=== PATIENT | male | born 1965 | race Caucasian/White ===

== ENCOUNTER 2017-04-23 10:00 | Emergency (ER) | payer MEDICAID, SELFPAY ==
[2017-04-23 10:01] VITALS: BP 136/7; PULSE 99; RESP 16; TEMP 36.2; O2SAT 98; BMI 25.5
--- NOTE | 2017-04-23 10:22 | RAD_ITS ---
STUDY: X-RAY - LUMBAR SPINE REASON FOR EXAM: Male, 51 years old. Low back pain following a fall. TECHNIQUE: 3 view(s) of the lumbar spine were obtained. COMPARISON: None FINDINGS: There is straightening of the normal lumbar lordosis. There is no substantial scoliosis. There is a normal alignment of the vertebrae. Mild degree of anterior spondylosis at multiple levels. Disc space narrowing at the L4-L5 and L5-S1 levels. The soft tissue structures are unremarkable. RAD/Lumbar Spine 2 or 3 Views IMPRESSION: Degenerative changes of the spine, as detailed above. Straightening of the normal lumbar lordosis. Electronically Signed: Nikhil Tony MD at 11:25 EST Tel [phone], Service support ,
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
[2017-04-23 12:11] VITALS: PULSE 88; RESP 14; O2SAT 97
== END 2017-04-23 12:11 | disposition home or self-care (01) ==
PROVIDERS: Emergency Provider Emergency Medicine
DX: S06.0X0A Concussion without loss of consciousness, initial encounter (principal); S39.012A Strain of muscle, fascia and tendon of lower back, initial encounter; S30.0XXA Contusion of lower back and pelvis, initial encounter; W00.9XXA Unspecified fall due to ice and snow, initial encounter; Y93.9 Activity, unspecified; Y92.008 Other place in unspecified non-institutional (private) residence as the place of occurrence of the external cause; K13.70 Unspecified lesions of oral mucosa; N18.6 End stage renal disease; F10.94 Alcohol use, unspecified with alcohol-induced mood disorder; Y90.9 Presence of alcohol in blood, level not specified; F19.94 Other psychoactive substance use, unspecified with psychoactive substance-induced mood disorder; Z72.0 Tobacco use
CPT/HCPCS: 72100; 99282

== ENCOUNTER 2017-04-28 13:59 | Emergency (ER) | payer MEDICAID, SELFPAY ==
[2017-04-28 14:00] VITALS: BP 150/96; PULSE 113; RESP 18; TEMP 37.7; O2SAT 98; BMI 24.9
--- NOTE | 2017-04-28 15:50 | RAD_ITS ---
STUDY: X-RAY CHEST REASON FOR EXAM: Male, 51 years old. Fever. TECHNIQUE: AP and lateral upright views of the chest. COMPARISON: Portable AP upright chest x-ray February 24, 2017. FINDINGS: The lungs are not as fully expanded today, and there is subsegmental crowding/atelectasis in the medial right lung base. No other new infiltrate. There is no demonstrated pleural abnormality. Normal size heart. Normal mediastinum and sosa. Normal visualized pulmonary arteries. There is stable mild atherosclerotic calcification of the aortic arch. Normal visualized thoracic spine. Normal visualized ribs, clavicles, and shoulders. There is no demonstrated abnormality of the visualized soft tissue structures of the upper abdomen. RAD/Chest PA and Lateral IMPRESSION: Suboptimal inspiratory effort with subsegmental volume loss in the medial right base. Electronically Signed: Manny De Jesus MD at 16:07 EST , Service support ,
[2017-04-28 15:54] LABS: Absolute Lymphocyte Count 1.14 X10^3/ul (0.83-4.51); Absolute Neutrophil Count 5.3 X10^3/uL (2.0-7.7); Basophil# 0.01 X10^3/uL; Basophil% 0.1 % (0-1); Eosinophils% 1.4 % (0-5); Hematocrit 37.9 % (40-54); Lymphocyte # 1.14 X10^3/ul (4.0); Lymphocyte % 16.3 % (19-41); Mean Corp Hgb Conc 34.3 g/gl (32-36); Mean Corpuscular Hgb 31.2 pg (27.0-32.0); Mean Corpuscular Volume 90.9 fL (80-94); Mean Platelet Vol. 10.3 fl (6.2-12.0); Monocyte# 0.48 X10^3/uL; Monocyte% 6.8 % (0-10); Neutrophil # 5.27 X10^3/uL (2.7-7.7); Neutrophil % 75.3 % (47-70); Platelet Count 139 K/mm3 (150-450); RBC Distribution Width CV 14.2 % (11.6-14.6); RBC Distribution Width SD 46.2 fl (35.1-43.9); Red Blood Count 4.17 M/mm3 (4.6-6.2)
[2017-04-28 15:58] LABS: POSITIVE COUNT NO; POSITIVE DIFFERENTIAL NO; POSITIVE MORPHOLOGY NO
--- NOTE | 2017-04-28 16:01 | ED.DCSUM_ITS ---
- ER Visit Summary Date of Service: 04/28/17 Chief Complaint: UTI History of Present Illness: The patient is a 51 M who was admitted in February for sepsis and UTI. Patient presents back today stating he thinks his infection has returned. He does have some dysuria symptoms today. He states he had chills that started last evening. Patient also has chronic back pain and is complaining of back pain. He was seen in the ER 5 days ago for increased back pain after a fall. Lumbar spine x-rays were unremarkable. Physical Examination: No signs triage include a temperature of 100.0 TA and a heart rate of 113. At the time of my exam his oral temperature is 98.6. Patient is sleeping comfortably but easily awakens. Head neck examination is unremarkable. Heart is tachycardic and regular. Lung sounds are clear. Abdomen is soft nontender. Active bowel sounds noted throughout. Back examination is obtained after the patient easily turned onto his side. He has mild tenderness in the lower thoracic and upper lumbar region. Neuro exam is normal. Test Results: CBC is significant only for platelet count of 139,000. Chemistry studies normal. Urinalysis and lactate are normal. I did review his x-ray from a few days ago that was unremarkable. Urine tox screen is positive for amphetamines, benzos, and cannabinoids. Emergency Department Course and Treatment: Due to the patient's complaint of back pain, fever, and known drug use, I did have concern for possible epidural abscess. MRI was ordered. Patient went down to MRI, but reportedly crawled out of the machine stating that he could not tolerate the test that he does wanted to leave. He was brought back to the emergency room. AMA paperwork was being prepared with the patient left the department. Treatment Plan: [] Disposition: Eloped Impression: Back pain, acute on chronic This note was generated with [employer] dictation software. It may contain incorrect words, spelling, and punctuation that were not noted in review of the chart prior to signing ED Disposition - Plan for ED Patient: Disposition: Against Medical Advice Chief Complaint: Back Instructions: ED Neck Back Pain General Referrals: Antonieta Sim [NON-STAFF] -
[2017-04-28 16:07] LABS: Anion Gap 4 (5-15); BUN 16 mg/dL (7-18); BUN/Creat Ratio 15.5 RATIO (10-20); Calcium,Total 8.3 mg/dL (8.5-10.1); Chloride 102 mmol/L (98-107); Creatinine, Serum 1.03 mg/dL (0.70-1.30); EST Glomerular Filtration Rate 80 mL/min (>60); Est Glom Filt Rate - Afr Amer 97 mL/min (>60); Estimated Creatinine Clearance 88.34 ml/min; Glucose 88 mg/dL (74-106); Potassium 3.8 mmol/L (3.5-5.1); Sodium Level 135 mmol/L (136-145)
[2017-04-28 16:10] LABS: Bacteria 0 SEEN /hpf (None Seen); Mucous, Urine 0 SEEN /hpf (<or=2+); Red Blood Cells-Urine 0 SEEN /hpf (0-5); Squamous Epithelial Cells - UA 0 SEEN /hpf (0-5); White Blood Cells 0 SEEN /hpf (0-5)
[2017-04-28] MEDS: 0.9% Normal Saline 1,000 ML 150 ML IV (16:14)
[2017-04-28 16:26] LABS: Lactic Acid 1.5 mmol/L (0.4-2.0)
[2017-04-28 16:29] LABS: Color, Urine Yellow (Yellow); Glucose, Dipstick Normal (Normal); Ketone-Dipstick Negative (Negative); Leukocyte Esterase-Dipstick Negative /ul (Negative); Nitrite-Dipstick Negative (Negative); Occult Blood-Urine Negative /ul (Negative); Protein-Dipstick Negative (Negative); Urine Bilirubin Dipstick Negative (Negative); Urine Clarity Clear (Clear); Urine Urobilinogen Normal (Normal)
[2017-04-28 16:54] LABS: Amphetamine Urine VISTA POSITIVE (<1000 ng/mL); Barbiturate Urine VISTA NEGATIVE (< 200 ng/mL); Benzodiazepine Urine VISTA POSITIVE (< 200 ng/mL); Cocaine Urine VISTA NEGATIVE (< 300 ng/mL); Ecstacy Urine VISTA NEGATIVE (< 500 ng/mL); Methadone Urine VISTA NEGATIVE (< 300 ng/mL); PCP Urine VISTA NEGATIVE (< 25 ng/mL); THC Urine VISTA POSITIVE (< 50 ng/mL); Vista UDS pH Range 6
[2017-04-28 18:08] VITALS: PULSE 94; RESP 16; O2SAT 97
--- NOTE | 2017-04-28 19:20 | ED.DEP ---
ED Disposition - Plan for ED Patient: Disposition: Home or Assisted Living Chief Complaint: Back Instructions: ED Neck Back Pain General Referrals: Antonieta Sim [NON-STAFF] -
--- NOTE | 2017-04-28 19:24 | ED.RN ---
PT DID NOT COMPLETE MRI ORDERED. RADIOLOGY CALLED AND STATED THAT PT CLIMBED OUT OF MRI MACHINE AND REFUSED TO FINISH SCAN. PT RETURNED TO ED AND ASKED THAT HE BE RELEASED IMMEDIATELY. IV WAS DISCONTINUED AND DISCHARGE GIVEN. PT LEAVES ED AGITATED.
== END 2017-04-28 19:27 | disposition left against medical advice (07) ==
PROVIDERS: Emergency Provider Emergency Medicine
DX: M45.6 Ankylosing spondylitis lumbar region (principal); M54.5 Low back pain; G89.29 Other chronic pain; F12.90 Cannabis use, unspecified, uncomplicated; F15.90 Other stimulant use, unspecified, uncomplicated; F19.90 Other psychoactive substance use, unspecified, uncomplicated; Z72.0 Tobacco use
CPT/HCPCS: 36415; 71046; 80048; 80307; 81001; 83605; 85025; 87040; 96360; 96361; 99283; J7030; A4216

== ENCOUNTER 2017-06-06 02:49 | Emergency (ER) | payer MEDICAID, SELFPAY ==
[2017-06-06 02:50] VITALS: BP 175/100; PULSE 120; RESP 16; TEMP 37.3; O2SAT 97; BMI 25.8
--- NOTE | 2017-06-06 03:18 | EKG12_ITS ---
Test Reason : GEN ILL Blood Pressure : / mmHG Vent. Rate : 116 BPM Atrial Rate : 116 BPM P-R Int : 144 ms QRS Dur : 086 ms QT Int : 306 ms P-R-T Axes : 041 045 056 degrees QTc Int : 425 ms Sinus tachycardia Otherwise normal ECG Confirmed by MILES ALVAREZ, ANNEMARIE ([id number]), newspaper photo editor MEGAN PASTOR ([id number]) on 06/09/2017 1:26:08 PM Referred By: RETA Confirmed By:ANNEMARIE AQUINO MD
--- NOTE | 2017-06-06 03:18 | RAD_ITS ---
STUDY: X-RAY CHEST REASON FOR EXAM: Male, 51 years old. Cough. TECHNIQUE: Frontal and lateral views of the chest. COMPARISON: 02/24/2017. 04/01/2015. FINDINGS: There is hyperinflation of the lungs consistent with chronic obstructive lung disease (COPD). There is no demonstrated pulmonary infiltrate. There is no demonstrated pleural abnormality. Normal size heart. Normal mediastinum and sosa. Normal visualized pulmonary arteries. Normal visualized aortic arch and descending thoracic aorta. Normal visualized thoracic spine. Normal visualized ribs, clavicles, and shoulders. There is no demonstrated abnormality of the visualized soft tissue structures of the upper abdomen. RAD/Chest PA and Lateral IMPRESSION: Hyperexpansion of lungs, suggesting COPD. No evidence for acute cardiopulmonary pathology. Electronically Signed: Luis Vilchis MD at 4:43 EDT , Service support ,
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
[2017-06-06 03:26] LABS: Bacteria 0 SEEN /hpf (None Seen); Color, Urine Yellow (Yellow); Glucose, Dipstick Normal (Normal); Ketone-Dipstick Negative (Negative); Leukocyte Esterase-Dipstick Negative /ul (Negative); Mucous, Urine 0 SEEN /hpf (<or=2+); Nitrite-Dipstick Negative (Negative); Occult Blood-Urine 150 /ul (Negative); Protein-Dipstick 100 mg/dl (Negative); Red Blood Cells-Urine 0 SEEN /hpf (0-5); Squamous Epithelial Cells - UA 0 SEEN /hpf (0-5); Urine Bilirubin Dipstick Negative (Negative); Urine Clarity Clear (Clear); Urine Urobilinogen Normal (Normal); Urine pH 6.5 (5.0 - 8.0); White Blood Cells 0 SEEN /hpf (0-5)
[2017-06-06 03:41] LABS: Absolute Lymphocyte Count 0.61 X10^3/ul (0.83-4.51); Absolute Neutrophil Count 7.3 X10^3/uL (2.0-7.7); Basophil# 0.02 X10^3/uL; Basophil% 0.2 % (0-1); Eosinophil# 0.02 X10^3/uL; Eosinophils% 0.2 % (0-5); Hematocrit 45.1 % (40-54); Hemoglobin 15.7 g/dl (13.0-16.5); Lymphocyte # 0.61 X10^3/ul (4.0); Mean Corp Hgb Conc 34.8 g/gl (32-36); Mean Corpuscular Hgb 31.2 pg (27.0-32.0); Mean Corpuscular Volume 89.5 fL (80-94); Mean Platelet Vol. 10.4 fl (6.2-12.0); Monocyte# 0.76 X10^3/uL; Monocyte% 8.7 % (0-10); Neutrophil # 7.28 X10^3/uL (2.7-7.7); Neutrophil % 83.7 % (47-70); POSITIVE COUNT NO; POSITIVE DIFFERENTIAL NO; POSITIVE MORPHOLOGY NO; Platelet Count 143 K/mm3 (150-450); RBC Distribution Width CV 13.5 % (11.6-14.6); Red Blood Count 5.04 M/mm3 (4.6-6.2); White Blood Count 8.7 K/mm3 (4.4-11.0)
[2017-06-06] MEDS: 0.9% Normal Saline 1,000 ML 1000 ML IV (03:50)
[2017-06-06] MEDS: Acetaminophen 500 MG Tablet 1000 MG PO (03:51)
[2017-06-06] MEDS: Ondansetron 4 MG/2 ML Vial IV (03:51)
[2017-06-06 03:59] LABS: ALB/GLOB Ratio 0.5 RATIO (0.9-2.4); AST(SGOT) 38 U/L (15-37); Alanine Aminotransfer ALT/SGPT 48 U/L (16-61); Albumin, Serum 3.1 g/dL (3.2-5.0); Alkaline Phosphatase 79 U/L (45-117); Anion Gap 7 (5-15); BUN 10 mg/dL (7-18); BUN/Creat Ratio 9.8 RATIO (10-20); Chloride 99 mmol/L (98-107); Creatinine, Serum 1.02 mg/dL (0.70-1.30); EST Glomerular Filtration Rate 81 mL/min (>60); Est Glom Filt Rate - Afr Amer 98 mL/min (>60); Estimated Creatinine Clearance 83.75 ml/min; Globulin 5.9 g/dL (2.2-4.2); Glucose 110 mg/dL (74-106); Potassium 3.5 mmol/L (3.5-5.1); Sodium Level 135 mmol/L (136-145)
[2017-06-06 04:02] LABS: Lactic Acid 0.9 mmol/L (0.4-2.0)
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
[2017-06-06 06:49] VITALS: BP 112/73; PULSE 92; RESP 24; TEMP 37.2; O2SAT 98
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
[2017-06-06 07:16] VITALS: RESP 18
--- NOTE | 2017-06-06 07:18 | ED.DEP ---
ED Disposition - Plan for ED Patient: Chief Complaint: Cold Sx Instructions: ED Sinusitis Abx Tx, ED Fx Nasal Conf W X Ray, ED Dysuria Uncertain Cause Prescriptions: Levofloxacin [Levaquin] 750 mg PO DAILY #7 tab Referrals: Vishnu Song MD [Primary Care Provider] - Isiah Bruno MD [STAFF PHYSICIAN] -
[2017-06-06 08:01] VITALS: BP 148/74; PULSE 98; RESP 16; TEMP 36.6; O2SAT 98
--- NOTE | 2017-06-06 18:23 | ED.RN ---
did follow up call related to prelim blood culture result per request of dr Quick. Called to verify pt sx and if has fever. Pt did not answer. left message at [phone].
== END 2017-06-06 08:02 | disposition home or self-care (01) ==
PROVIDERS: Emergency Provider Emergency Medicine; Family Provider Family Medicine; PCP Family Medicine
DX: S02.2XXA Fracture of nasal bones, initial encounter for closed fracture (principal); Y04.2XXA Assault by strike against or bumped into by another person, initial encounter; Y93.89 Activity, other specified; Y92.9 Unspecified place or not applicable; J01.00 Acute maxillary sinusitis, unspecified; R30.0 Dysuria; B19.20 Unspecified viral hepatitis C without hepatic coma; Z72.0 Tobacco use
CPT/HCPCS: 70160; 70450; 70486; 71046; 80053; 81001; 83605; 85025; 87040; 87086; 87186; 87804; 93005; 96361; 96374; 99285; J7030; A4216; J2405

== ENCOUNTER 2017-06-10 11:36 | Emergency (ER) | payer MEDICAID, SELFPAY ==
[2017-06-10 11:37] VITALS: BP 163/100; PULSE 108; RESP 18; TEMP 36.2; O2SAT 99; BMI 24.3
--- NOTE | 2017-06-10 11:55 | RAD_ITS ---
STUDY: X-RAY - RIGHT HAND REASON FOR EXAM: Male, 51 years old. Pain following a recent fall. TECHNIQUE: 3 view(s) of the hand. COMPARISON: None. FINDINGS: Normal radiocarpal articulation. Normal distal radioulnar joint. Normal visualized carpal bones. Normal carpal articulations Normal carpometacarpal articulation of the thumb. Normal second through fifth carpometacarpal joints. Normal metacarpi. Normal metacarpophalangeal joint of the thumb. Normal interphalangeal joint of the thumb. Normal proximal and distal phalanges of the thumb. Normal metacarpophalangeal joints of the second through fifth fingers. Normal proximal and distal interphalangeal joints of the second through fifth fingers. There is evidence of prior amputation of the distal portions of the distal phalanges of the third and fourth digits. Soft tissue swelling. RAD/Hand Min 3 Views IMPRESSION: No acute abnormality is seen. 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 Electronically Signed: Nikhil Tony MD at 12:19 EDT Tel [phone], Service support ,
--- NOTE | 2017-06-10 12:27 | ED.VISSUMM ---
- ER Visit Summary Date of Service: 06/10/17 Chief Complaint: Right hand injury History of Present Illness: The patient is a 51 M who states that he fell on snow covered steps yesterday injuring his right hand when he put out to catch himself. He is right-hand dominant. He denies any other injury. Physical Examination: Vital signs are significant for blood pressure 163/100, otherwise unremarkable. Patient sitting upright in bed no acute distress. Head neck examination was no external sign of trauma. Heart is regular rate and rhythm. No lung sounds are clear. Right upper extremity examination reveals tenderness palpation of the MCP joint of the right index finger. There is mild edema and erythema. There is no deformity. He is able to wiggle fingers. Test Results: Right hand x-rays reveal no acute abnormality. He had prior amputations of the distal aspect of the distal phalanges of the third and fourth digits. Emergency Department Course and Treatment: Amor wrap was applied to the hand. He is given a prescription for naproxen. Treatment Plan: [] Disposition: Discharge Impression: Right hand contusion This note was generated with [employer] dictation software. It may contain incorrect words, spelling, and punctuation that were not noted in review of the chart prior to signing ED Disposition - Plan for ED Patient: Disposition: Home or Assisted Living Chief Complaint: Upper Extremity Injury Instructions: ED Contusion Hand Prescriptions: Naproxen [Naprosyn] 500 mg PO BID PRN #20 tablet Referrals: Vishnu Song MD [Primary Care Provider] - 1 Week if not improving
[2017-06-10 12:33] VITALS: RESP 12
== END 2017-06-10 12:33 | disposition home or self-care (01) ==
PROVIDERS: Emergency Provider Emergency Medicine; Family Provider Family Medicine; PCP Family Medicine
DX: S60.221A Contusion of right hand, initial encounter (principal); W00.1XXA Fall from stairs and steps due to ice and snow, initial encounter; Y93.9 Activity, unspecified; Y92.9 Unspecified place or not applicable; Z72.0 Tobacco use
CPT/HCPCS: 73130; 99282

== ENCOUNTER 2018-06-27 11:44 | Emergency (ER) | payer MEDICAID, SELFPAY ==
[2018-06-27 11:45] VITALS: BP 162/89; PULSE 102; RESP 16; TEMP 36.5; O2SAT 97; BMI 25.1
--- NOTE | 2018-06-27 11:54 | ED.VISSUMM ---
- ER Visit Summary Date of Service: 06/27/18 Chief Complaint: Right hand pain and redness History of Present Illness: The patient is a 52 M who has pain and redness on his right hand. It started yesterday. He denies any trauma. He believes he may have a spider bite. He noticed some swelling on the ulnar side of his hand. He noted to be a little bit red. He has not had a fever. Denies any pain in his fingers. Pain is not worse with moving his fingers. Physical Examination: Vital signs are reviewed. Patient afebrile. Right hand exam shows no tenderness to palpation. He has mild swelling on the ulnar portion of his hand. There is some erythema. There is no abscess. He has full range of motion without pain. Test Results: None performed Emergency Department Course and Treatment: Patient appears to have a cellulitis of his hand. He will be treated with Keflex. He will ice and elevate and will follow up with his PCP. NSAIDs for pain as needed Treatment Plan: [] Disposition: Discharge Impression: Right hand cellulitis This note was generated with [employer] dictation software. It may contain incorrect words, spelling, and punctuation that were not noted in review of the chart prior to signing ED Disposition - Plan for ED Patient: Referrals: Vishnu Song MD [Primary Care Provider] -
--- NOTE | 2018-06-27 11:56 | ED.DEP ---
ED Disposition - Plan for ED Patient: Disposition: Home or Assisted Living Instructions: ED Infec Skin Cellulitis Prescriptions: Cephalexin [Keflex] 500 mg PO Q6 #28 cap Referrals: Vishnu Song MD [Primary Care Provider] -
[2018-06-27] MEDS: Cephalexin 250 MG Capsule 500 MG PO (12:06)
[2018-06-27 12:16] VITALS: BP 138/72; PULSE 85; RESP 16; O2SAT 98
== END 2018-06-27 12:28 | disposition home or self-care (01) ==
PROVIDERS: Emergency Provider Emergency Medicine; Family Provider Family Medicine; PCP Family Medicine
DX: L03.113 Cellulitis of right upper limb (principal); Z72.0 Tobacco use
CPT/HCPCS: 99283

== ENCOUNTER → 2018-10-09 15:05 | Outpatient (CLI) | payer SELFPAY ==
[2018-10-09 15:42] LABS: Cholesterol 108 mg/dL (200); High Density Lipoprotein 28 mg/dL; Triglycerides 125 mg/dL; Very Low Density Lipoprotein 25 mg/dL (5-40)
[2018-10-09 17:37] LABS: AST(SGOT) 97 U/L (15-37); Alanine Aminotransfer ALT/SGPT 100 U/L (16-61); Albumin, Serum 3.2 g/dL (3.2-5.0); Alkaline Phosphatase 93 U/L (45-117); Bilirubin, Direct 0.24 mg/dL (0.00-0.30); Globulin 4.8 g/dL (2.2-4.2)
== END ==
LOC: LABSPEC 15:12
PROVIDERS: Family Provider Family Medicine; PCP Family Medicine
DX: F11.23 Opioid dependence with withdrawal (principal)
CPT/HCPCS: 80061; 80076

== ENCOUNTER 2018-10-21 19:01 | Emergency (ER) | payer SELFPAY ==
[2018-10-21 19:02] VITALS: BP 161/86; PULSE 106; RESP 14; TEMP 36.9; O2SAT 98; BMI 24.3
--- NOTE | 2018-10-21 19:09 | US_ITS ---
STUDY: SCROTUM ULTRASOUND REASON FOR EXAM: Male, 53 years old. Right swelling and pain. TECHNIQUE: Ultrasound evaluation of the scrotum was performed with color Doppler and static bolden-scale imaging. COMPARISON: None. FINDINGS: RIGHT TESTICLE INTRATESTICULAR: There is a normal size of the right testicle. The right testicle measures 5 x 2.4 x 3.3 cm. There is a homogenous echotexture. There is normal arterial and normal venous vascularity. There is no demonstrated right testicular mass or cyst. EXTRATESTICULAR: The epididymis is normal in size. The epididymis head measures 1.3 x 1 x 0.8 cm. There is normal vascularity of the epididymis. 3 mm epididymal cyst. There is a small hydrocele. There is no demonstrated varicocele. There is no demonstrated extratesticular mass or cyst. LEFT TESTICLE INTRATESTICULAR: There is a normal size of the left testicle. The left testicle measures 5.1 x 2.3 x 3 cm. There is a homogenous echotexture. There is normal arterial and normal venous vascularity. There is no demonstrated left testicular mass or cyst. EXTRATESTICULAR: The epididymis is normal in size. The epididymis head measures 1.2 x 1 x 1.2 cm. There is normal vascularity of the epididymis. There is no demonstrated epididymal cystic structure. There is a small complex hydrocele. There is no demonstrated varicocele. There is no demonstrated extratesticular mass or cyst. US/Testicular with Arterial Flow IMPRESSION: 1. Normal bilateral testicles. 2. Small complex left hydrocele may indicate hemorrhage or infection. 3. Mild right hydrocele. 4. Small right epididymal cyst. Electronically Signed: Venecia Barker MD at 20:23 EDT Tel , Service support ,
--- NOTE | 2018-10-21 21:19 | ED.DCSUM_ITS ---
History of Present Illness Chief Complaint: Male Pain/Injury Detail of Chief Complaint: right testicular pain Informant: Patient Onset: Days - 2 Context: Gradual Onset Timing: Continuous Quality: sore Location: right hemiscrotum Current Severity: Moderate Maximum Severity: Moderate Worsened by: going up inside me, palpation Narrative: Patient complains of testicular pain right side only and he has felt a nontender nodule in his scrotum as well. Darker, orange-colored urine that is not painful. No fevers. Itchy rash on his abdomen as well. No hematuria. No back pain or nausea/vomiting. States he is sexually active with a female but does not know who all she has been with. Denies urethral discharge when he is not urinating. - Past Medical History (1) Anxiety Status: Chronic (2) Depression Status: Chronic Past Medical History - Allergies and Home Meds Allergies/Adverse Reactions: Allergies hydroxyzine [From Vistaril] Allergy (Verified 10/21/18 19:05) Other Primary Care Physician: Vishnu Song MD [Primary Care Provider] - Surgical History: no surgical history Lives: Alone Smoking Status: Current every day smoker Drugs: None - Family History Maternal Family History: Reports: Hypertension Paternal Family History: Reports: Dementia Review of Systems General: Denies: Chills, Fever, Sweats Gastrointestinal: Denies: Abdominal pain, Nausea, Vomiting Genitourinary: Reports: - - Right testicular pain. Denies: Dysuria, Hematuria, Frequency Musculoskeletal: Denies: Neck pain, Back pain Skin: Reports: Rash. Denies: Abscess Physical Exam Vital Signs/Narrative: Vital Signs Temp Pulse Resp BP Pulse Ox 10/21/18 19:02 98.5 F 106 H 14 161/86 H 98 Inital Vital Signs reviewed: Yes General: Well nourished, Well developed, No Acute Distress Head: Normocephalic, Atraumatic Abdomen: Soft, Nontender, Nondistended, Normal bowel sounds : - - Posterior right testicular tenderness. No significant testicular tenderness. Mildly larger than the left. Small mobile nontender cystic structure palpable near the midline of the scrotum. No left hemiscrotal tenderness. Examined while standing, no hernia. No urethral discharge present. Back: Nontender, Normal Inspection. Negative for: CVA tenderness Skin: No Trauma, Rash - Scattered erythematous nontender blanching pruritic rash mons and lower abdominal wall. No penile shaft lesions or scrotal lesions. Neurological: Alert, Oriented x3, Cranial nerves II-XII grossly intact, Normal Strength, Normal Sensation, Normal Gait Psychological: Normal affect, Normal Mood Diagnostic/Tx/Re-eval Impressions Testicular Ultrasound 10/21/18 19:09 IMPRESSION: 1. Normal bilateral testicles. 2. Small complex left hydrocele may indicate hemorrhage or infection. 3. Mild right hydrocele. 4. Small right epididymal cyst. Electronically Signed: Venecia Barker MD at 20:23 EDT Tel , Service support , 10/21/18 19:09 US Testicular [Testicular with Arterial Flow] [US] Stat Laboratory Results 10/21/18 21:21 Urine Color Yellow Urine Clarity Clear Urine pH 5.0 Ur Specific [place] 1.025 Urine Protein 100 H Urine Glucose (UA) Normal Urine Ketones 5 H Urine Occult Blood 10 H Urine Nitrite Negative Urine Bilirubin 1 H Urine Urobilinogen 4 H Ur Leukocyte Esterase Negative Urine RBC 0-5 SEEN Urine WBC 0 SEEN Ur Squamous Epith Cells 0 SEEN Urine Bacteria 0 SEEN Urine Mucus 1+ - Medical Decision Making Ultrasound shows hydrocele which is palpable, but no obvious sign of the source of his pain. Clinically I think he has epididymitis. Additionally, he sounds like he may be at risk for GC and chlamydia. He was treated empirically here with IM Rocephin, and given a prescription for doxycycline. Urinalysis showed nothing acute. Pt left prior to discharge. ED Disposition - Plan for ED Patient: Disposition: Home or Assisted Living Diagnosis: Epididymitis, right, Hydrocele Instructions: Epididymitis Prescriptions: Doxycycline Hyclate 1 cap PO BID #14 cap Prescription Printed Referrals: Vishnu Song MD [Primary Care Provider] - Antwon Grove MD [STAFF PHYSICIAN] - 3-5 Days if not improving
[2018-10-21 21:25] LABS: Bacteria 0 SEEN /hpf (None Seen); Squamous Epithelial Cells - UA 0 SEEN /hpf (0-5); White Blood Cells 0 SEEN /hpf (0-5)
[2018-10-21 21:30] LABS: Color, Urine Yellow (Yellow); Glucose, Dipstick Normal (Normal); Ketone-Dipstick 5 mg/dl (Negative); Leukocyte Esterase-Dipstick Negative /ul (Negative); Nitrite-Dipstick Negative (Negative); Occult Blood-Urine 10 /ul (Negative); Protein-Dipstick 100 mg/dl (Negative); Specific Gravity, Urine 1.025 (1.002-1.030); Urine Clarity Clear (Clear); Urine Urobilinogen 4 mg/dl (Normal)
[2018-10-21 21:38] LABS: Mucous, Urine 1+ /hpf (<or=2+); Red Blood Cells-Urine 0-5 SEEN /hpf (0-5); Urine Bilirubin Dipstick 1 mg/dL (Negative)
[2018-10-21] MEDS: Ketorolac 60 MG/2 ML Vial IM (22:10)
[2018-10-21] MEDS: Ceftriaxone 500 MG Vial 250 MG IM (22:11)
[2018-10-21 22:35] VITALS: BP 134/72; PULSE 90; RESP 16; O2SAT 99
== END 2018-10-21 23:59 | disposition home or self-care (01) ==
PROVIDERS: Emergency Provider Emergency Medicine; Family Provider Family Medicine; PCP Family Medicine
DX: N45.1 Epididymitis (principal); N43.3 Hydrocele, unspecified; F17.200 Nicotine dependence, unspecified, uncomplicated
CPT/HCPCS: 76870; 81001; 87491; 87591; 93976; 96372; 99283

== ENCOUNTER 2018-11-27 00:46 | Observation (INO) | payer MEDICAID, SELFPAY ==
[2018-11-27] VITALS (11 sets, daily range): BP systolic 108–146; BP diastolic 68–99; PULSE 72–88; RESP 16–21; TEMP 36.4–36.8; O2SAT 95–99; BMI 25.2; BMI 23.1
--- NOTE | 2018-11-27 00:52 | EKG12_ITS ---
Test Reason : CP ADMIT Blood Pressure : / mmHG Vent. Rate : 076 BPM Atrial Rate : 076 BPM P-R Int : 156 ms QRS Dur : 092 ms QT Int : 392 ms P-R-T Axes : 048 021 053 degrees QTc Int : 441 ms Normal sinus rhythm Normal ECG Confirmed by JOSE ALVAREZ, JAMMIE ([id number]), magazine editor ARJUN LEAL ([id number]) on 12/02/2018 11:03:06 AM Referred By: DR BASHIR Confirmed By:JAMMIE GARCIA MD
--- NOTE | 2018-11-27 00:52 | CT_ITS ---
STUDY: CTA HEAD AND NECK WITH CONTRAST REASON FOR EXAM: Male, 53 years old. FRONTAL HEAD PAIN,NAUSEA AND VOMITING,DIAPHORESIS RADIATION DOSAGE (If Supplied By Facility): CTDIvol = ( 28.22 ) mGy, DLP = ( 1564.29 ) mGycm TECHNIQUE: CT angiography was performed with a multi-detector CT scanner. Data acquisition was obtained from the skull base through the vertex following intravenous administration of 75ML IV Isovue 370. MIP images were reconstructed from the axial data set. Post-processing of the angiographic images was performed, with multiplanar reformation and 3D reconstruction. Individualized dose optimization techniques were used for this CT. COMPARISON: CT 06/06/2017 FINDINGS: Intracranial ICA calcifications. Otherwise: Normal bilateral petrous carotid arteries. Normal right cavernous carotid artery with a normal supraclinoid bifurcation. Normal left cavernous carotid artery with a normal supraclinoid bifurcation. Normal right A1 segments of the anterior cerebral artery. There is hypoplastic development of the left A1 segment of the anterior cerebral arteries with an atretic but intact artery. Normal intact anterior communicating artery (ACOM). Normal bilateral A2 segments of the anterior cerebral arteries. Normal right M1 and M2 segments of the middle cerebral arteries, with a normal M1 bifurcation. Normal left M1 and M2 segments of the middle cerebral arteries, with a normal M1 bifurcation. Normal right posterior communicating artery (PCOM). There is a persistent origin of the left posterior cerebral artery with absence of the posterior communicating artery (PCOM). Normal bilateral vertebral arteries. Normal basilar artery with a normal basilar bifurcation. The visualized bilateral superior cerebellar (SCA) arteries are normal. Normal bilateral P1, P2 and visualized P3 segments of the posterior cerebral arteries. There is no demonstrated aneurysm of the [place]. There is no demonstrated abnormality of the visualized brain. Bilateral maxillary sinus disease. AORTIC ARCH: Normal visualized aortic arch. Normal origins of the brachiocephalic, left common carotid, and left subclavian arteries. RIGHT CAROTID ARTERIES: Normal right common carotid artery (CCA). Normal right common carotid bulb. Normal origin of the right internal carotid (ICA) artery without a hemodynamically significant stenosis. Normal visualized cervical portion of the right internal carotid artery. Normal origin of the right external carotid artery (ECA). LEFT CAROTID ARTERIES: Normal left common carotid artery (CCA). Normal left common carotid bulb. Normal origin of the left internal carotid (ICA) artery without a hemodynamically significant stenosis. Normal visualized cervical portion of the left internal carotid artery. Normal origin of the left external carotid artery (ECA). VERTEBRAL ARTERIES: Normal bilateral vertebral arteries. CT/CTA Head AND Neck W/ Contrast IMPRESSION: No CTA evidence of significant intracranial arterial pathology. No CTA evidence of significant arterial pathology in the neck. NASCET criteria was used. Electronically Signed: Rodrigo Buitrago MD at 2:27 EDT Tel , Service support ,
--- NOTE | 2018-11-27 00:52 | CT_ITS ---
STUDY: CTA CHEST REASON FOR EXAM: Male, 53 years old. Chest pain, nausea, vomiting, diaphoresis this exam. History of smoker. RADIATION DOSAGE (If Supplied By Facility): CTDIvol = ( 17.28 ) mGy, DLP = ( 520.98 ) mGycm TECHNIQUE: The examination was performed with the intravenous administration of 75ML IV Isovue 370. Post-processing of the angiographic images was performed, with multiplanar reformation and 3D reconstruction. Individualized dose optimization techniques were used for this CT. COMPARISON: Chest x-ray 06/06/2017. 04/27/2017. 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 Normal enhancement of the main pulmonary artery and right and left pulmonary arteries. Normal enhancement of the bilateral peripheral pulmonary arteries. There is no demonstrated pulmonary embolism. Pulmonary artery diameter 3 cm. Normal thoracic aorta and visualized great vessels allowing for mild calcification along the aortic arch.. There is no demonstrated aortic dissection. Normal heart and pericardium. Normal mediastinum. Normal hilar regions. Normal visualized trachea and bronchi. The lungs are well expanded. Mild nonspecific compression of the dependent parenchyma. Normal pleura. Normal chest wall structures. Normal osseous structures. Normal visualized upper abdomen. CT/CTA Chest W/WO Contrast IMPRESSION: Normal CTA chest examination, without a demonstrated pulmonary embolism or arterial dissection. Other nonacute findings as outlined above. Electronically Signed: Allison Fuchs MD at 2:29 EDT , Service support ,
--- NOTE | 2018-11-27 00:57 | ED.DCSUM_ITS ---
- ER Visit Summary Date of Service: 11/27/18 Chief Complaint: Chest pain History of Present Illness: The patient is a 53 M presenting per EMS with chest pain. He states this started 30 minutes ago. At its worst it was 10 out of 10. Currently 5 out of 10. Pain is in his midsternal and left chest. He has associated nausea, vomiting, diaphoresis, and shortness of breath. He is a smoker. Denies other CAD risk factors. He is adopted and does not know his family history. No PE/DVT risk factors. He also complains of frontal headache. He declined nitro per EMS because he was advised this may worsen his headache. Physical Examination: Vitals are stable. Patient is afebrile. Alert no acute distress. HEENT exam is unremarkable. Neck is supple. No meningismus Lungs are clear and equal bilaterally. Chest is nontender Heart is regular rate and rhythm. Abdomen is soft nontender nondistended. Extremities are unremarkable. Skin is warm and dry. No focal neurologic deficit. Remainder of exam is unremarkable. Emergency Department Course and Treatment: Patient was given aspirin per EMS. EKG is sinus rate of 81 with no acute ischemic changes. He declined morphine. He was given Tylenol and Zofran. CBC unremarkable other than platelet 135. Chemistries unremarkable. Troponin is negative. CTA head and neck show no acute process. CTA chest shows no acute process. Patient is resting comfortably on reevaluation. Will discuss with the hospitalist for observation. Disposition: Observation Impression: Chest pain, headache This note was generated with [employer] dictation software. It may contain incorrect words, spelling, and punctuation that were not noted in review of the chart prior to signing ED Disposition - Plan for ED Patient: Referrals: NOT,DEFINED [NON-STAFF] -
[2018-11-27] MEDS: Ondansetron 4 MG/2 ML Vial IV (01:03)
[2018-11-27] MEDS: Acetaminophen 500 MG Tablet 1000 MG PO (01:03)
[2018-11-27 01:08] LABS: Absolute Lymphocyte Count 0.95 X10^3/uL (0.83-4.51); Absolute Neutrophil Count 4.4 X10^3/uL (2.0-7.7); Basophil# 0.03 X10^3/uL; Basophil% 0.5 % (0-1); Eosinophil# 0.05 X10^3/uL; Eosinophils% 0.9 % (0-5); Hematocrit 41.6 % (40-54); Hemoglobin 14.2 g/dL (13.0-16.5); Lymphocyte # 0.95 X10^3/ul (4.0); Lymphocyte % 16.5 % (19-41); Mean Corp Hgb Conc 34.1 g/dL (32-36); Mean Corpuscular Hgb 31.6 pg (27.0-32.0); Mean Corpuscular Volume 92.7 fL (80-94); Mean Platelet Vol. 10.4 fl (6.2-12.0); Monocyte# 0.33 X10^3/uL; Monocyte% 5.7 % (0-10); NRBC Flagged by Analyzer 0 % (0-5); Neutrophil # 4.38 X10^3/uL (2.7-7.7); Neutrophil % 75.9 % (47-70); Platelet Count 135 K/mm3 (150-450); RBC Distribution Width CV 12.8 % (11.6-14.6); RBC Distribution Width SD 43.5 fl (35.1-43.9); Red Blood Count 4.49 M/mm3 (4.6-6.2); White Blood Count 5.8 K/mm3 (4.4-11.0)
[2018-11-27 01:16] LABS: Anion Gap 4 (5-15); BUN 12 mg/dL (7-18); BUN/Creat Ratio 10.9 RATIO (10-20); Calcium,Total 8.7 mg/dL (8.5-10.1); Chloride 106 mmol/L (98-107); EST Glomerular Filtration Rate 74 mL/min (>60); Est Glom Filt Rate - Afr Amer 89 mL/min (>60); Estimated Creatinine Clearance 78.35 ml/min; Glucose 101 mg/dL (74-106); Potassium 3.5 mmol/L (3.5-5.1); Sodium Level 140 mmol/L (136-145)
--- NOTE | 2018-11-27 02:43 | HP.PCM_ITS ---
Problem List (1) Chest pain Status: Acute History of Present Illness Date of Admission: 11/27/18 Chief Complaint: chest pain The patient is a 53 year old M with a significant history of tobacco abuse; and previous drug use who presented to emergency department with excruciating epigastric pain that radiated to his left upper back. His pain is constant with episodic increase in intensity. He describes his pain as stabbing. Associated with symptoms is nausea and vomiting. Also he was diaphoretic. Further, patient had headache. He was offered nitroglycerin by paramedics but he refused because of concern that it may worsen his headache. Patient received 4 baby aspirins. He also offered morphine in the emergency department but he refused because he is a recovering drug user and is concerned about him being hooked to drugs again. He reports that he has a cold. He describes his cold symptoms as productive cough of green sputum; running nose; and sore throat. Past Medical History Past Medical History (Chronic Problems): Chronic Problems Tobacco dependence (Chronic) Anxiety (Chronic) Depression (Chronic) History of drug abuse (Chronic) Allergies hydroxyzine [From Vistaril] Allergy (Verified 10/21/18 19:05) Other Home Medications: Ambulatory Orders Medication Instructions Recorded C,E,Zinc,Copper 11/Wannj6c/Lut 1 ea PO DAILY 11/27/18 [50+ Adult Eye Health Softgel] Surgical History: no surgical history Psychiatric History: Anxiety, Depression Lives: With Family Smoking Status: Current every day smoker Tobacco Use: Cigarettes Alcohol: Occasional - *Family History Maternal History Items: - - Patient is adopted and does not know his family medical history Paternal History Items: - - Patient is adopted and does not know his family medical history Review of Systems Constitutional: Denies: Chills, Fever, Weight Change HEENT: Reports: Head Aches, Sinus Congestion, Sinus Drainage, Sore Throat Cardiovascular: Reports: Chest Pain. Denies: Palpitations Respiratory: Reports: Cough, Sputum production. Denies: Shortness of breath at rest Gastrointestinal: Reports: Abdominal Pain - epigastric pain. Denies: Constipation, Nausea, Vomiting Genitourinary: Denies: Dysuria Musculoskeletal: Denies: Joint Pain, Joint Tenderness Skin: Denies: Rash, Wounds Neurological: Denies: Numbness, Tingling, Focal weakness Psychiatric: Denies: Anxiety, Depression, Homicidal Ideations, Suicidal Ideations Hematologic/ Lymphatic: Denies: Easy Bruising, Easy Bleeding VTE Information - Inpt Only VTE Present on Admission: No VTE Mechan Device Prophylaxis: SCD's VTE Pharm Prophylaxis ordered?: No Patient Problems: Active and Suspected Problems Chest pain (Acute) - Physical Exam General: Alert, Oriented x3, Cooperative HEENT: Atraumatic, PERRLA, EOMI, Normocephalic Neck: Supple, No JVD, Negative Carotid Bruits Lungs: Clear to auscultation, Normal air movement, No rhonchi, No wheeze, No rales Cardiovascular: Regular rate, No murmurs Abdomen: Bowel Sounds Present, Soft, Non Tender, Non-Distended Extremities: No edema, Capillary Refill Less than 3 Seconds Skin: No rashes, No breakdown Musculoskeletal: No Tenderness to Palpation of Joints or Extremities Neurological: Cranial nerves II-XII grossly intact Psych/Mental Status: Normal Affect, Appropriate Vital Signs Temp Pulse Resp BP Pulse Ox 97.6 F L 79 18 146/87 H 97 11/27/18 00:47 11/27/18 01:46 11/27/18 02:00 11/27/18 01:46 11/27/18 01:46 Oxygen Delivery Method Room Air Weight: 79.6 kg Body Mass Index (BMI) 25.2 Laboratory Tests Past 24 Hrs 11/27/18 11/27/18 00:52 00:52 WBC 5.8 RBC 4.49 L Hgb 14.2 Hct 41.6 MCV 92.7 MCH 31.6 MCHC 34.1 RDW Std Deviation 43.5 RDW Coeff of Janny 12.8 Plt Count 135 L MPV 10.4 Immature Gran % (Auto) 0.500 Neut % (Auto) 75.9 H Lymph % (Auto) 16.5 L [place] % (Auto) 5.7 Eos % (Auto) 0.9 Baso % (Auto) 0.5 Absolute Neuts (auto) 4.4 Absolute Lymphs (auto) 0.95 Nucleated RBC % 0 Sodium 140 Potassium 3.5 Chloride 106 Carbon Dioxide 30.0 Anion Gap 4 L BUN 12 Creatinine 1.10 Estim Creat Clear Calc 78.35 Est GFR (MDRD) Af Amer 89 Est GFR (MDRD) Non-Af 74 BUN/Creatinine Ratio 10.9 Glucose 101 Calcium 8.7 Troponin I < 0.015 Assessment/Plan All Active Problems Chest pain (Acute) GI bleed (Ruled-out) The patient is a 53 year old M with a significant history of tobacco abuse; and previous drug use who presented to emergency department with excruciating epigastric pain that radiated to his left upper back. Chest pain This could be cardiac origin or viral gastritis. Place on a monitored bed on PCU Chest CTA independently reviewed confirms no acute cardiopulmonary process. Head/ neck CTA showed no acute pathology EKG independently reviewed confirms sinus rhythm Already received aspirin 324 mg ASA 81 mg p.o. daily ordered Nitroglycerin not ordered because of patient concern for headache Morphine as needed not ordered because of patient concern of getting hooked again to drugs We will check lipid panel. Serial cardiac enzymes Stat EKG as needed for chest pain Treadmill stress test in the AM if the cardiac enzymes are negative Cold-like symptoms Mucinex for cough ordered Flonase for rhinitis. Received Tylenol for headache at the emergency department. PRN Tylenol continued. Tobacco abuse counselled Nicotine patch ordered DVT prophylaxis SCD Code Visit OBSV E&M: 99959 Initial observation care L2
--- NOTE | 2018-11-27 03:51 | EKG12_ITS ---
Test Reason : CP Blood Pressure : / mmHG Vent. Rate : 081 BPM Atrial Rate : 081 BPM P-R Int : 156 ms QRS Dur : 088 ms QT Int : 368 ms P-R-T Axes : 057 050 064 degrees QTc Int : 427 ms Normal sinus rhythm Normal ECG Confirmed by MILES ALVAREZ, ANNEMARIE ([id number]), editor managing newspaper ARJUN LEAL ([id number]) on 11/30/2018 9:19:49 AM Referred By: Confirmed By:ANNEMARIE AQUINO MD
[2018-11-27] MEDS: guaiFENesin 1,200 MG Tablet 1200 MG PO (04:14)
[2018-11-27 05:21] LABS: Cholesterol 105 mg/dL (200); High Density Lipoprotein 40 mg/dL; Triglycerides 75 mg/dL; Very Low Density Lipoprotein 15 mg/dL (5-40)
--- NOTE | 2018-11-27 13:53 | DS.PCM_ITS ---
<Chong Hopper - Last Filed: 11/27/18 13:53> Discharge Date and Diagnosis Date of Admission: 11/27/18 Date of Discharge: 11/27/18 - Primary Discharge Diagnosis Active and Suspected Problems Chest pain (Acute) Nicotine abuse Anxiety Depression - Secondary Discharge Diagnosis Chronic Problems Tobacco dependence (Chronic) Anxiety (Chronic) Depression (Chronic) History of drug abuse (Chronic) Hospital Course and Treatment Imaging Results: 11/27/18 05:55 Nuclear Stress Test - Treadmil [NM] AM (NON MEDS) PENDING CT/CTA Chest W/WO Contrast IMPRESSION: Normal CTA chest examination, without a demonstrated pulmonary embolism or arterial dissection. Other nonacute findings as outlined above. CT/CTA Head AND Neck W/ Contrast IMPRESSION: No CTA evidence of significant intracranial arterial pathology. No CTA evidence of significant arterial pathology in the neck. NASCET criteria was used. Operations: None Procedures: None Summary of Care Provided: Hospital Course: The patient is a 53 year old M with pmhx as above who presented to the ER with c/o chest pain. This was described as a sudden crushing pain on the left side that occurred while sitting. He stood up and became soaked in sweat. He had associated LH. No radiation of the pain, no palpitations. He refused nitro as he had a headache The pain spontaneously subsided while here overnight. He came to the ER and had negative EKG, negative troponin, negative CTA head and neck and negative CTA of the chest. He was admitted to the PCU on tele. No events on tele. Troponin was cycled and remained negative. He had a stress test the following morning. The patient became frustrated while waiting for the stress test to result and left AMA. His results are pending at this time. This patient was seen by Chong Hopper PA-C under the supervision of Dr. Robetrs. [] - Physical Exam General: Alert, Oriented x3, Cooperative HEENT: Atraumatic, PERRLA, EOMI, Normocephalic Neck: Supple, No JVD, Negative Carotid Bruits Lungs: Clear to auscultation, Normal air movement Cardiovascular: Regular rate, No murmurs Abdomen: Bowel Sounds Present, Soft, Non Tender Extremities: No edema, Capillary Refill Less than 3 Seconds Skin: No rashes, No breakdown Musculoskeletal: No Tenderness to Palpation of Joints or Extremities Neurological: Cranial nerves II-XII grossly intact Psych/Mental Status: Normal Affect, Appropriate Vital Signs Temp Pulse Resp BP Pulse Ox 98.2 F 78 16 110/68 96 11/27/18 09:47 11/27/18 11:00 11/27/18 09:47 11/27/18 09:47 11/27/18 09:47 Oxygen Delivery Method Room Air Weight: 161 lb 2.526 oz Body Mass Index (BMI) 23.1 Intake and Output for Last 24 Hours 11/25/18 11/26/18 11/27/18 23:59 23:59 23:59 Intake Total 60 60 Output Total Balance 59 / 59 Laboratory Tests Past 24 Hrs 11/27/18 11/27/18 11/27/18 00:52 00:52 04:19 WBC 5.8 RBC 4.49 L Hgb 14.2 Hct 41.6 MCV 92.7 MCH 31.6 MCHC 34.1 RDW Std Deviation 43.5 RDW Coeff of Janny 12.8 Plt Count 135 L MPV 10.4 Immature Gran % (Auto) 0.500 Neut % (Auto) 75.9 H Lymph % (Auto) 16.5 L [place] % (Auto) 5.7 Eos % (Auto) 0.9 Baso % (Auto) 0.5 Absolute Neuts (auto) 4.4 Absolute Lymphs (auto) 0.95 Nucleated RBC % 0 Sodium 140 Potassium 3.5 Chloride 106 Carbon Dioxide 30.0 Anion Gap 4 L BUN 12 Creatinine 1.10 Estim Creat Clear Calc 78.35 Est GFR (MDRD) Af Amer 89 Est GFR (MDRD) Non-Af 74 BUN/Creatinine Ratio 10.9 Glucose 101 Calcium 8.7 Troponin I < 0.015 Triglycerides Cancelled 75 Cholesterol Cancelled 105 LDL Cholesterol Cancelled 50 VLDL Cholesterol Cancelled 15 HDL Cholesterol Cancelled 40 11/27/18 11/27/18 04:19 07:35 WBC RBC Hgb Hct MCV MCH MCHC RDW Std Deviation RDW Coeff of Janny Plt Count MPV Immature Gran % (Auto) Neut % (Auto) Lymph % (Auto) [place] % (Auto) Eos % (Auto) Baso % (Auto) Absolute Neuts (auto) Absolute Lymphs (auto) Nucleated RBC % Sodium Potassium Chloride Carbon Dioxide Anion Gap BUN Creatinine Estim Creat Clear Calc Est GFR (MDRD) Af Amer Est GFR (MDRD) Non-Af BUN/Creatinine Ratio Glucose Calcium Troponin I < 0.015 < 0.015 Triglycerides Cholesterol LDL Cholesterol VLDL Cholesterol HDL Cholesterol Discharge Diet: - - lef AMA Discharge Activity: - - left AMA Home Medications: Medications to take at Discharge C,E,Zinc,Copper 11/Rvbav0v/Lut [50+ Adult Eye Health Softgel] 1 ea PO DAILY 11/27/18 Primary Care Physician: NOT,DEFINED [NON-STAFF] - Disposition: Against Medical Advice Minutes spent on discharge:: 35 Patient Condition:: Guarded Medical Necessity - Tobacco Use Smoking Status: Current every day smoker Tobacco Use: Cigarettes Meaningful Use Info Meaningful Use Diagnoses (Choose all that apply): None applicable <Marbin Robertsa - Last Filed: 11/27/18 16:39> Discharge Date and Diagnosis - Secondary Discharge Diagnosis Chronic Problems Tobacco dependence (Chronic) Anxiety (Chronic) Depression (Chronic) History of drug abuse (Chronic) Hospital Course and Treatment Summary of Care Provided: The patient is a 53 year old M with past medical history of nicotine dependence, previous polysubstance use admitted with excruciating epigastric pain that radi ated to his left chest. Pain was described as stabbing, associated with nausea vomiting and diaphoresis. His admitting EKG showed normal sinus rhythm, no acute ST changes. CT and CTA of the chest was negative for acute findings. His troponins were negative. He underwent stress test that was negative. I did not see the patient during this admission. His admitting paperwork, blood work and imaging with reviewed by myself. Patient left AMA before his nuclear stress test was released. - Physical Exam Vital Signs Temp Pulse Resp BP Pulse Ox 98.2 F 78 16 110/68 96 11/27/18 09:47 11/27/18 11:00 11/27/18 09:47 11/27/18 09:47 11/27/18 09:47 Oxygen Delivery Method Room Air Weight: 73.1 kg Body Mass Index (BMI) 23.1 Intake and Output for Last 24 Hours 11/25/18 11/26/18 11/27/18 23:59 23:59 23:59 Intake Total 60 / 60 Output Total Balance 59 / 59 Laboratory Tests Past 24 Hrs 11/27/18 11/27/18 11/27/18 00:52 00:52 04:19 WBC 5.8 RBC 4.49 L Hgb 14.2 Hct 41.6 MCV 92.7 MCH 31.6 MCHC 34.1 RDW Std Deviation 43.5 RDW Coeff of Janny 12.8 Plt Count 135 L MPV 10.4 Immature Gran % (Auto) 0.500 Neut % (Auto) 75.9 H Lymph % (Auto) 16.5 L [place] % (Auto) 5.7 Eos % (Auto) 0.9 Baso % (Auto) 0.5 Absolute Neuts (auto) 4.4 Absolute Lymphs (auto) 0.95 Nucleated RBC % 0 Sodium 140 Potassium 3.5 Chloride 106 Carbon Dioxide 30.0 Anion Gap 4 L BUN 12 Creatinine 1.10 Estim Creat Clear Calc 78.35 Est GFR (MDRD) Af Amer 89 Est GFR (MDRD) Non-Af 74 BUN/Creatinine Ratio 10.9 Glucose 101 Calcium 8.7 Troponin I < 0.015 Triglycerides Cancelled 75 Cholesterol Cancelled 105 LDL Cholesterol Cancelled 50 VLDL Cholesterol Cancelled 15 HDL Cholesterol Cancelled 40 11/27/18 11/27/18 04:19 07:35 WBC RBC Hgb Hct MCV MCH MCHC RDW Std Deviation RDW Coeff of Janny Plt Count MPV Immature Gran % (Auto) Neut % (Auto) Lymph % (Auto) [place] % (Auto) Eos % (Auto) Baso % (Auto) Absolute Neuts (auto) Absolute Lymphs (auto) Nucleated RBC % Sodium Potassium Chloride Carbon Dioxide Anion Gap BUN Creatinine Estim Creat Clear Calc Est GFR (MDRD) Af Amer Est GFR (MDRD) Non-Af BUN/Creatinine Ratio Glucose Calcium Troponin I < 0.015 < 0.015 Triglycerides Cholesterol LDL Cholesterol VLDL Cholesterol HDL Cholesterol Code Visit OBSV E&M: 04643 Observation care discharge
--- NOTE | 2018-11-27 14:09 | NURSING ---
pt left AMA, IV removed
--- NOTE | 2018-11-27 14:53 | STRESSREP_ITS ---
Stress Test Report Date: 11/27/2018 Procedure: Exercise tolerance test/imaging study Indications: Chest pain Consent: Per the patient Procedure: The patient exercised on a Ulises protocol for 6 minutes achieving a peak heart rate of 146 bpm (88 % predicted maximal heart rate) with a peak blood pressure 168/64 mmHg and a peak MET capacity of 7 METs. The baseline ECG demonstrated normal sinus rhythm poor R wave progression in the anterior leads. The peak exercise ECG demonstrated no significant ischemic changes. EKG during recovery revealed no significant ischemic changes [There were no cardiac dysrhythmias pretest, during exercise, or recovery]. The functional capacity was considered below average for age. There was [no complaint of chest discomfort during exercise or recovery]. The examination was discontinued secondary to dyspnea. Impression: 1. Technically adequate (percent predicted maximal heart rate greater than 85%) exercise tolerance test 2. Stress test is negative for exercise-induced EKG changes of ischemia 3. The test test is negative for exercise-induced chest pain 4. Functional capacity is below average for age 5. Nuclear images pending Myocardial perfusion imaging study: Technique: The patient was injected with 11.4 mCi of technetium 99m Cardiolite and subsequently rest SPECT Cardiolite nuclear imaging was obtained in the horizontal long, vertical long, and short axis views. The patient exercised on a Ulises protocol. Please see above for details. The patient was injected with 33.8 mCi of technetium 99m Cardiolite and subsequently stress SPECT Cardiolite nuclear imaging was obtained in the horizontal long, vertical long, and short axis views. A gated Cardiolite study at peak stress was obtained. Interpretation: Rest and stress SPECT Cardiolite nuclear imaging status post realignment, normalization, and attenuation correction, demonstrates normal myocardial radioisotope uptake. The gated Cardiolite study demonstrates no significant regional wall motion abnormalities. The reported LVEF is 62 %. Impression: 1. There is no evidence of significant ischemia or infarction. 2. The gated Cardiolite study reports an LVEF of 62%. This note was generated with Support[employer] software. It may contain incorrect words, spelling, and punctuation that were not noted in checking the note before signing.
== END 2018-11-27 13:29 | disposition left against medical advice (07) ==
LOC: ED 02:15 → PCU 03:48
PROVIDERS: Admitting Provider Hospitalist; Emergency Provider Emergency Medicine; Visit Provider Internal Medicine
DX: R07.89 Other chest pain (principal); R11.2 Nausea with vomiting, unspecified; R06.02 Shortness of breath; R51 Headache; R10.13 Epigastric pain; F19.11 Other psychoactive substance abuse, in remission; J02.9 Acute pharyngitis, unspecified; F17.210 Nicotine dependence, cigarettes, uncomplicated
CPT/HCPCS: 36415; 70496; 70498; 71275; 78452; 80048; 80061; 84484; 85025; 93005; 93017; 96374; 99218; 99285; 99406; A9500; J7030; Q9967; A4216; G0378; J2405

== ENCOUNTER 2018-12-13 00:24 | Emergency (ER) | payer MEDICAID, SELFPAY ==
[2018-11-27 03:54] VITALS: BMI 23.1
[2018-12-13 00:26] VITALS: BP 147/108; PULSE 110; RESP 16; TEMP 37.2; O2SAT 97; BMI 22.2
--- NOTE | 2018-12-13 00:29 | ED.VIS.GEN ---
History of Present Illness Chief Complaint: Foreign Body Informant: Patient Onset: Days Context: Gradual Onset Timing: Continuous Current Severity: Moderate Maximum Severity: Moderate Narrative: The patient presents to the emergency department due to concern for foreign body in his arm. Patient states that he was injecting heroin and methamphetamines 2 days ago. He feels like the needle slipped. He states he feels like he can feel it in his elbow. He denies any cough or chest pain. He denies any systemic symptoms. The patient is otherwise been in his normal state of health. Prior similar symptoms: No Recent Illness/Hospitalization: No Past Medical History - Allergies and Home Meds Allergies/Adverse Reactions: Allergies hydroxyzine [From Vistaril] Allergy (Verified 12/13/18 00:26) Other Primary Care Physician: Care Physician,No Primary [Primary Care Provider] - Prior records reviewed: Yes Surgical History: no surgical history Smoking Status: Current every day smoker - Family History Maternal Family History: Reports: - - Patient is adopted and does not know his family medical history Paternal Family History: Reports: - - Patient is adopted and does not know his family medical history Review of Systems General: Denies: Chills, Fever, Sweats Eyes: Denies: Visual changes - bilaterally, Diplopia ENT: Denies: Rhinorrhea, Sore throat Cardiovascular: Denies: Chest pain, Palpitations Respiratory: Denies: Dyspnea, Cough, Dyspnea on exertion Gastrointestinal: Denies: Abdominal pain, Nausea, Vomiting, Diarrhea, Melena, Hematochezia Genitourinary: Denies: Dysuria, Hematuria, Frequency Musculoskeletal: Denies: Back pain, Extremity Pain Skin: Denies: Rash, Wounds Neurological: Denies: Headache, Weakness, Numbness Physical Exam Inital Vital Signs reviewed: Yes General: Well nourished, Well developed, No Acute Distress Head: Normocephalic, Atraumatic Eyes: Perrl, EOMI ENT: Moist mucous membranes, No rhinorrhea Neck: Supple, Nontender Cardiovascular: Regular rate, Regular rhythm, No murmurs Respiratory: No distress, CTA bilaterally, Chest nontender Abdomen: Soft, Nontender, Nondistended, Normal bowel sounds Back: Nontender, Normal Inspection Extremities: Nontender, No edema Skin: Normal color, No rash Neurological: Alert, Oriented x3, Cranial nerves II-XII grossly intact, Normal Strength, Normal Sensation Psychological: Normal affect, Normal Mood Diagnostic/Tx/Re-eval - Medical Decision Making There is really no erythema, edema, or tenderness in the antecubital fossa of the right arm. There is no evidence of phlebitis or cellulitis. He has a normal pulse. I did initially start with an elbow x-ray. There is no evidence of retained foreign body. This was a metallic needle, so I would expect to see it. I then obtained x-rays of the shoulder and chest. There was still no evidence of foreign body. At this point, I do feel the patient is safe for discharge. There is no evidence of infectious process or retained foreign body. Patient is comfortable with this plan of care. Impression 1. IV drug abuse ED Disposition - Plan for ED Patient: Instructions: FOREIGN BODY, Soft Tissue [Removed] Referrals: Care Physician,No Primary [Primary Care Provider] -
--- NOTE | 2018-12-13 00:35 | RAD_ITS ---
STUDY: X-RAY - RIGHT ELBOW REASON FOR EXAM: Male, 53 years old. The concern for foreign body post IV drug abuse TECHNIQUE: 3 view(s) of the elbow. COMPARISON: None. FINDINGS: Normal visualized humerus, radius and ulna. Normal radiocapitellar and ulnotrochlear articulations. There is soft tissue swelling. No significant joint effusion. No radiopaque foreign body. RAD/Elbow min 3 Views IMPRESSION: There is soft tissue swelling. No radiopaque foreign body. Electronically Signed: Gab Farley, at 1:06 EDT Tel , Service support ,
--- NOTE | 2018-12-13 00:48 | RAD_ITS ---
STUDY: X-RAY - RIGHT SHOULDER REASON FOR EXAM: Male, 53 years old. Foreign body possible needle from IV drug use TECHNIQUE: 3 view(s) of the shoulder. COMPARISON: None. FINDINGS: Mild degenerative changes. No acute fracture or dislocation. The soft tissue structures are unremarkable. No radiopaque foreign body. Normal visualized pulmonary apex. RAD/Shoulder min 2 Views IMPRESSION: No radiopaque foreign body. No acute fracture. Electronically Signed: Gab Farley, at 1:38 EDT Tel , Service support ,
--- NOTE | 2018-12-13 00:55 | RAD_ITS ---
STUDY: X-RAY CHEST REASON FOR EXAM: Male, 53 years old. Pain TECHNIQUE: Frontal and lateral views of the chest. COMPARISON: November 27, 2018. FINDINGS: The lungs are clear and expanded. There is no demonstrated pleural abnormality. Normal size heart. Aortic calcifications. Normal visualized thoracic spine. Normal visualized ribs, clavicles, and shoulders. There is no demonstrated abnormality of the visualized soft tissue structures of the upper abdomen. RAD/Chest PA and Lateral IMPRESSION: No acute cardiopulmonary disease identified. Electronically Signed: Gab Farley, at 1:37 EDT Tel , Service support ,
[2018-12-13 01:41] VITALS: BP 130/88; PULSE 97; RESP 15; O2SAT 96
== END 2018-12-13 01:51 | disposition home or self-care (01) ==
PROVIDERS: Emergency Provider Emergency Medicine
DX: F11.10 Opioid abuse, uncomplicated (principal); F15.10 Other stimulant abuse, uncomplicated; F17.200 Nicotine dependence, unspecified, uncomplicated
CPT/HCPCS: 71046; 73030; 73080; 99282

== ENCOUNTER → 2025-01-18 | Outpatient (CLI) | payer MEDICAID, SELFPAY ==
--- NOTE | 2025-01-18 15:20 | RAD_ITS ---
PROCEDURE: L/S SPINE MIN 4 VIEWS 01/18/2025 REASON FOR EXAM: LOW BACK PAIN TECHNIQUE: Procedure Code: [id number] Modality: DX Procedure: L/S SPINE MIN 4 VIEWS FINDINGS: No evidence acute fracture or dislocation. No visualized pars defects. Moderate discogenic degenerative changes at L5-S1. [id number] discogenic degenerative changes at L4-5. The other intervertebral disc spaces are grossly maintained. Vertebral body heights are maintained. Normal alignment. RAD/L/S Spine Min 4 Views IMPRESSION: Lower lumbar spondylosis. Reading Location: [id number]
[2025-01-18 15:48] LABS: Hematocrit 40.3 % (40-54); Hemoglobin 13.6 g/dL (13.0-16.5); Immature Granulocytes Count 0.010 X10^3/uL (0.0-0.0); Mean Corp Hgb Conc 33.7 g/dL (32-36); Mean Corpuscular Volume 88.6 fL (80-94); Mean Platelet Vol. 11.1 fl (6.2-12.0); NRBC Flagged by Analyzer 0 % (0-5); Platelet Count 143 K/mm3 (150-450); RBC Distribution Width CV 14.1 % (11.6-14.6); RBC Distribution Width SD 45.5 fl (35.1-43.9); Red Blood Count 4.55 M/mm3 (4.6-6.2); White Blood Count 4.7 K/mm3 (4.4-11.0)
[2025-01-18 16:28] LABS: AST(SGOT) 20 U/L (<=37); Alanine Aminotransfer ALT/SGPT 12 U/L (<=46); Albumin, Serum 3.9 g/dL (3.4-4.8); Alkaline Phosphatase 43 U/L (40-129); Anion Gap 8 (5-15); BUN 24 mg/dL (4-19); BUN/Creat Ratio 23.3 RATIO (10-20); Calcium,Total 9.4 mg/dL (7.6-11.0); Carbon Dioxide 26.3 mmol/L (21.0-32.0); Chloride 104 mmol/L (98-108); Cholesterol 153 mg/dL (<=200); Globulin 5.9 g/dL (2.2-4.2); Glucose 87 mg/dL (70-99); Low Density Lipoprotein Calc. 90 mg/dL; PSA,Total - Annual Screen 0.24 ng/mL (0.02-4.00); Potassium 4.0 mmol/L (3.3-5.1); Triglycerides 63 mg/dL; Very Low Density Lipoprotein 13 mg/dL (5-40); cholesterol:hdl ratio screen 3.02
[2025-01-18 23:15] LABS: Xtra Tube Kwok EXTRA TUBE
== END | disposition home or self-care (01) ==
LOC: POLAB3 15:14 → RAD 15:19
PROVIDERS: PCP Family Medicine Geriatric Medicine; Visit Provider Family Medicine Geriatric Medicine
DX: M54.50 Low back pain, unspecified (principal); E78.5 Hyperlipidemia, unspecified; R53.83 Other fatigue; Z12.5 Encounter for screening for malignant neoplasm of prostate
CPT/HCPCS: 84153; 36415; 72110; 80053; 80061; 84443; 85025; G0103

== ENCOUNTER → 2025-01-20 | Outpatient (CLI) | payer MEDICAID, SELFPAY ==
[2025-01-24 16:09] LABS: Albumin 3.9 g/dL (2.9-4.4); Alpha-2-Globulins, Ur 4.9 % (.); Gamma Globulin 3.4 g/dL (0.4-1.8); Immunoglobulin A 39 mg/dL (61-437); Immunoglobulin G 4850 mg/dL (603-1613); Immunoglobulin M 15 mg/dL (20-172); M-Spike, Ur % Comment: % (Not Observed); PROEL- TOTAL PROTEIN 9.2 g/dL (6.0-8.5); Total Protein, Ur 34.3 mg/dL (Not Estab.)
== END | disposition home or self-care (01) ==
PROVIDERS: PCP Family Medicine Geriatric Medicine; Referring Provider Family Medicine Geriatric Medicine; Visit Provider Family Medicine Geriatric Medicine
DX: Z01.89 Encounter for other specified special examinations (principal); E87.1 Hypo-osmolality and hyponatremia
CPT/HCPCS: 36415; 82784; 84165; 84166; 86334; 86335

== ENCOUNTER → 2025-02-08 | Outpatient (CLI) | payer MEDICAID, SELFPAY ==
--- NOTE | 2025-02-08 18:00 | CT_ITS ---
PROCEDURE: LOW DOSE CT LUNG SCREENING 02/08/2025 REASON FOR EXAM: SCREENING 1 pack per year smoker times 10 years, quit 7 years ago TECHNIQUE: Procedure Code: [id number] Modality: CT Procedure: LOW DOSE CT LUNG SCREENING Coronal and Sagittal reconstruction series were provided. One or more dose reduction techniques were used (e.g., Automated exposure control, adjustment of the mA and/or kV according to patient size, use of iterative reconstruction technique). REFERENCE LINK: [employer] Lung-RADS RADIATION DOSE SUMMARY: CTDlvol: 3.02 mGy DLP: 111.36 mGycm COMPARISON: 2019 FINDINGS: Lung windows show the lungs to be normally expanded. Subtle ground-glass opacifications noted in the right middle lobe consistent with active alveolitis. There is no organized infiltrate, effusion, or suspicious noncalcified mass or nodule. Limited soft tissue windows show a normal-appearing thyroid gland. No suspicious axillary mediastinal or perihilar adenopathy. The thoracic aorta tapers normally. No calcified coronary vessels are noted. Limited cuts through the upper abdomen do not show a suspicious abnormality. Bony structures show degenerative change CT/Low Dose CT Lung Screening IMPRESSION: No suspicious noncalcified mass or nodule. No organized infiltrate or effusion , there subtle ground-glass opacifications in the right middle lobe suggesting active alveolitis Coronary artery calcification (CAC) is is absent Lung-RADS Category: 1 NEGATIVE. RECOMMEND 12-MONTH SCREENING LDCT. Other Significant Findings: Reading Location: [place] [id number]
--- OUTSIDE RECORDS SUMMARY | 2025-02-08 18:00 | XMS RPT_ITS | CCD ---
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 OTHER Prim rj Care Unavailable Denzel, Silas Chi Attending Unavailable Denzel, Silas Chi Primary Care Unavailable Denzel Silas Chi Attending Unavailable Denzel, Silas Chi Primary Care Unavailable Allergies Allergy Classification Reported Allergen(s) Allergy Type Date of Onset Reaction(s) Facility (1 source) hydrOXYzine; Translations: [HYDROXYZINE HCL] Drug Allergy 09-12-2022 [facility] Repository (1 source) hydrOXYzine Drug Allergy 12-13-2018 [facility] Repository Problems Problem Classification Problem Date Documented Da te Episodic/Chronic Coagulation and hemorrhagic disorders (2 sources) Thrombocytopenia, unspecified; Translations: [Thrombocytopenia, unspecified] Onset: 09-12-2022 Chronic Disorders of lipid metabolism (1 source) Hyperlipidemia, unspecified; Translations: [Hyperlipidemia, unspecified] Onset: 01-18-2025 Chronic Fluid and electrolyte disorders (1 source) Hypo-osmolality and hyponatremia; Translations: [Hypo-osmolality and hyponatremia] Onset: 01-19-2025 Episodic Malaise and fatigue (1 source) Other fatigue; Translations: [Other fatigue] Onset: 01-18-2025 Episodic Other gastrointestinal disorders (2 sources) Other fecal abnormalities; Translations: [Other fecal abnormalities] Onset: 08-26-2023 Episodic Other screening for suspected conditions (not mental disorders or infectious disease) (1 source) Encounter for screening for malignant neoplasm of prostate; Translations: [Encounter for screening for malignant neoplasm of prostate] Onset: 01-18-2025 Episodic Poisoning by other medications and drugs (2 sources) Poisoning by unspecified drugs, medicaments and biological substances, accidental (unintentional), initial encounter; Translations: [Poisoning by unspecified drugs, medicaments and biological substances, accidental (unintentional), initial encounter] Onset: 09-12-2022 Episodic Unclassified (1 source) Onset: 02-17-2018 Unclassified (1 source) Low back pain, unspecified; Translations: [Low back pain, unspecified] Onset: 01-18-2025 Results Test Name Value Interpretation Reference Range Facil ity CBC W/Diff, Automatedon 01-08 Absolute Lymph 1.59 X10 3/uL Normal 0.83-4.51 [facility] Comment on above: Performed By: #### L 100.0100, L501.9520, L501.9910, L500.4100, L500.4050 #### [facility] [address] [place], [address] Absolute Neut 2.7 X10 3/uL Normal 2.0-7.7 [facility] Comment on above: Performed By: #### L 100.0100, L501.9520, L501.9910, L500.4100, L500.4050 #### [facility] [address] [place], [address] Basophils/100 WBC (Bld) 0.4 % Normal 0-1 [facility] Comment on above: Performed By: #### L 100.0100, L501.9520, L501.9910, L500.4100, L500.4050 #### [facility] [address] [place], [address] Eosinophils/100 WBC (Bld) 2.1 % Normal 0-5 [facility] Comment on above: Performed By: #### L 100.0100, L501.9520, L501.9910, L500.4100, L500.4050 #### [facility] [address] [place], [address] Erythrocyte distribution width (RBC) [Ratio] 14.1 % Normal 11.6-14.6 [facility] Comment on above: Performed By: #### L 100.0100, L501.9520, L501.9910, L500.4100, L500.4050 #### [facility] [address] [place], [address] Hematocrit (Bld) [Volume fraction] 40.3 % Normal 40-54 [facility] Comment on above: Performed By: #### L 100.0100, L501.9520, L501.9910, L500.4100, L500.4050 #### [facility] [address] [place], [address] Hemoglobin (Bld) [Mass/Vol] 13.6 g/dL Normal 13.0-16.5 [facility] Comment on above: Performed By: #### L 100.0100, L501.9520, L501.9910, L500.4100, L500.4050 #### [facility] [address] [place], [address] IG% 0.200 Normal 0.0-0.9 [facility] Comment on above: Result Comment: IG% - Immature Granulocytes (promyelocytes, myelocytes and metamyelocytes) > 1% indicates that a LEFT SHIFT is Present. Performed By: #### L 100.0100, L501.9520, L501.9910, L500.4100, L500.4050 #### [facility] [address] [place], [address] Lymphocytes/100 WBC (Bld) 33.7 % Normal 19-41 [facility] Comment on above: Performed By: #### L 100.0100, L501.9520, L501.9910, L500.4100, L500.4050 #### [facility] [address] [place], [address] MCH (RBC) [Entitic mass] 29.9 pg Normal 27.0-32.0 [facility] Comment on above: Performed By: #### L 100.0100, L501.9520, L501.9910, L500.4100, L500.4050 #### [facility] [address] [place], [address] MCHC (RBC) [Mass/Vol] 33.7 g/dL Normal 32-36 [facility] Comment on above: Performed By: #### L 100.0100, L501.9520, L501.9910, L500.4100, L500.4050 #### [facility] [address] [place], [address] MCV (RBC) [Entitic vol] 88.6 fL Normal 80-94 [facility] Comment on above: Performed By: #### L 100.0100, L501.9520, L501.9910, L500.4100, L500.4050 #### [facility] [address] [place], [address] Monocytes/100 WBC (Bld) 5.7 % Normal 0-10 [facility] Comment on above: Performed By: #### L 100.0100, L501.9520, L501.9910, L500.4100, L500.4050 #### [facility] [address] [place], [address] Neutrophils/100 WBC (Bld) 57.9 % Normal 47-70 [facility] Comment on above: Performed By: #### L 100.0100, L501.9520, L501.9910, L500.4100, L500.4050 #### [facility] [address] [place], [address] Nucleated RBC (Bld) [#/Vol] 0 10*3/uL Normal 0-5 [facility] Comment on above: Performed By: #### L 100.0100, L501.9520, L501.9910, L500.4100, L500.4050 #### [facility] [address] [place], [address] Platelet mean volume (Bld) [Entitic vol] 11.1 fL Normal 6.2-12.0 [facility] Comment on above: Performed By: #### L 100.0100, L501.9520, L501.9910, L500.4100, L500.4050 #### [facility] [address] [place], [address] Platelets (Bld) [#/Vol] 143 10*3/uL Low 150-450 [facility] Comment on above: Performed By: #### L 100.0100, L501.9520, L501.9910, L500.4100, L500.4050 #### [facility] [address] [place], [address] RBC (Bld) [#/Vol] 4.55 10*6/uL Low 4.6-6.2 [facility] Comment on above: Performed By: #### L 100.0100, L501.9520, L501.9910, L500.4100, L500.4050 #### [facility] [address] [place], [address] RDW SD 45.5 fl High 35.1-43.9 [facility] Comment on above: Performed By: #### L 100.0100, L501.9520, L501.9910, L500.4100, L500.4050 #### [facility] [address] [place], [address] WBC (Bld) [#/Vol] 4.7 10*3/uL Normal 4.4-11.0 [facility] Comment on above: Performed By: #### L 100.0100, L501.9520, L501.9910, L500.4100, L500.4050 #### [facility] [address] [place], [address] Comprehensive Met[facility] Prof [facility] 01-18-2025 Albumin [Mass/Vol] 3.9 g/dL Normal 3.4-4.8 [facility] Comment on above: Performed By: #### L 100.0100, L501.9520, L501.9910, L500.4100, L500.4050 #### [facility] [address] [place], [address] Albumin/Globulin [Mass ratio] 0.6 {ratio} Low 0.9-2.4 [facility] Comment on above: Performed By: #### L 100.0100, L501.9520, L501.9910, L500.4100, L500.4050 #### [facility] [address] [place], [address] ALK PHOS 43 U/L Normal 40-129 [facility] Comment on above: Performed By: #### L 100.0100, L501.9520, L501.9910, L500.4100, L500.4050 #### [facility] [address] [place], [address] ALT [Catalytic activity/Vol] 12 U/L Normal <=46 [facility] Comment on above: Performed By: #### L 100.0100, L501.9520, L501.9910, L500.4100, L500.4050 #### [facility] [address] [place], [address] AST [Catalytic activity/Vol] 20 U/L Normal <=37 [facility] Comment on above: Performed By: #### L 100.0100, L501.9520, L501.9910, L500.4100, L500.4050 #### [facility] [address] [place], [address] Bilirubin [Mass/Vol] 0.55 mg/dL Normal 0.00-1.30 [facility] Comment on above: Performed By: #### L 100.0100, L501.9520, L501.9910, L500.4100, L500.4050 #### [facility] [address] [place], [address] BUN/CRE 23.3 RATIO High 10-20 [facility] Comment on above: Performed By: #### L 100.0100, L501.9520, L501.9910, L500.4100, L500.4050 #### [facility] [address] [place], [address] Calcium [Mass/Vol] 9.4 mg/dL Normal 7.6-11.0 [facility] Comment on above: Performed By: #### L 100.0100, L501.9520, L501.9910, L500.4100, L500.4050 #### [facility] [address] [place], [address] Chloride [Moles/Vol] 104 mmol/L Normal 98-108 [facility] Comment on above: Performed By: #### L 100.0100, L501.9520, L501.9910, L500.4100, L500.4050 #### [facility] [address] [place], [address] CO2 [Moles/Vol] 26.3 mmol/L Normal 21.0-32.0 [facility] Comment on above: Performed By: #### L 100.0100, L501.9520, L501.9910, L500.4100, L500.4050 #### [facility] [address] [place], [address] Creatinine [Mass/Vol] 1.01 mg/dL Normal 0.70-1.20 [facility] Comment on above: Performed By: #### L 100.0100, L501.9520, L501.9910, L500.4100, L500.4050 #### [facility] [address] [place], [address] GAP 8 Normal 5-15 [facility] Comment on above: Performed By: #### L 100.0100, L501.9520, L501.9910, L500.4100, L500.4050 #### [facility] [address] [place], [address] GFR/1.73 sq M.predicted among non-blacks MDRD (S/P/Bld) [Vol rate/Area] 85 mL/min/{1.73_m2} Normal >60 [facility] Comment on above: Result Comment: mL/m in/1.73m2 CKD-EPI Creatinine Equation (2020) Performed By: #### L 100.0100, L501.9520, L501.9910, L500.4100, L500.4050 #### [facility] [address] [place], [address] Globulin (S) [Mass/Vol] 5.9 g/dL High 2.2-4.2 [facility] Comment on above: Performed By: #### L 100.0100, L501.9520, L501.9910, L500.4100, L500.4050 #### [facility] [address] [place], [address] Glucose [Mass/Vol] 87 mg/dL Normal 70-99 [facility] Comment on above: Performed By: #### L 100.0100, L501.9520, L501.9910, L500.4100, L500.4050 #### [facility] [address] [place], [address] Potassium [Moles/Vol] 4.0 mmol/L Normal 3.3-5.1 [facility] Comment on above: Performed By: #### L 100.0100, L501.9520, L501.9910, L500.4100, L500.4050 #### [facility] [address] [place], [address] Sodium [Moles/Vol] 138 mmol/L Normal 133-145 [facility] Comment on above: Performed By: #### L 100.0100, L501.9520, L501.9910, L500.4100, L500.4050 #### [facility] [address] [place] [place], [address] T PROT 9.8 g/dL High 5.9-8.4 [facility] Comment on above: Performed By: #### L 100.0100, L501.9520, L501.9910, L500.4100, L500.4050 #### [facility] [address] [place] [place], [address] Urea nitrogen [Mass/Vol] 24 mg/dL High 4-19 [facility] Comment on above: Performed By: #### L 100.0100, L501.9520, L501.9910, L500.4100, L500.4050 #### [facility] [address] [place] [place], [address] L/S Spine Min 4 Views01-08 L/S Spine Min 4 Views [facility] [address] [place] [address] L/S Spine Min 4 Views MR#: [id number] Acct: [id number] Name: DOROTEO CAMPOS Rep #: [id number] : 1965 M 59 From: Lboo Whitney MD PCP: Dr. Silas Mahoney MD Status: REG CLI Study: L/S Spine Min 4 Views Date of Exam: 01/18/25 Exam# [id number] Ordering Dr: Silas Mahoney MD PROCEDURE: L/S SPINE MIN 4 VIEWS 01/18/2025 REASON FOR EXAM: LOW BACK PAIN TECHNIQUE: Procedure Code: RADSPLS Modality: DX Procedure: L/S SPINE MIN 4 VIEWS FINDINGS: No evidence acute fracture or dislocation. No visualized pars defects. Moderate discogenic degenerative changes at L5-S1. Xujq-qh-zyhnbtim discogenic degenerative changes at L4-5. The other intervertebral disc spaces are grossly maintained. Vertebral body heights are maintained. Normal alignment. RAD/L/S Spine Min 4 Views IMPRESSION: Lower lumbar spondylosis. Reading Location: [id number] CC: Dr. Silas Mahoney MD Reimbursement Coordinator: Signed Normal [facility] Lipid Profileon 01-18-2025 CHOL:HDL 3.02 Normal [facility] Comment on above: Performed By: #### L 100.0100, L501.9520, L501.9910, L500.4100, L500.4050 #### [facility] [address] [place], [address] Cholesterol [Mass/Vol] 153 mg/dL Normal <=200 [facility] Comment on above: Result Comment: Chol esterol level, Desirable <200 mg/dL Borderline high cholesterol 200-239 mg/dL High cholesterol >=240 mg/dL Recommendations of the NCEP Adult Treatment Panel for the following risk-cutoff thresholds for the [place] population. Performed By: #### L 100.0100, L501.9520, L501.9910, L500.4100, L500.4050 #### [facility] [address] [place], [address] Cholesterol in HDL [Mass/Vol] 51 mg/dL Normal [facility] Comment on above: Result Comment: Danuta onal Cholesterol Education Program (NCEP) guidelines: <40 mg/dL: Low HDL-cholesterol (major risk factor for CHD) >= 60 mg/dL: High HDL-cholesterol (negative risk factor for CHD) HDL-cholesterol is affected by a number of factors, e.g. smoking, exercise, hormones, sex and age. Performed By: #### L 100.0100, L501.9520, L501.9910, L500.4100, L500.4050 #### [facility] [address] [place], [address] Cholesterol in LDL [Mass/Vol] 90 mg/dL Normal [facility] Comment on above: Result Comment: Bord yolyky=895-227 mg/dL Higher Mady=055 mg/dL or greater Vleasquez Equation 2020 for LDL-C Performed By: #### L 100.0100, L501.9520, L501.9910, L500.4100, L500.4050 #### [facility] [address] [place], [address] Cholesterol in VLDL [Mass/Vol] 13 mg/dL Normal 5-40 [facility] Comment on above: Performed By: #### L 100.0100, L501.9520, L501.9910, L500.4100, L500.4050 #### [facility] [address] [place], [address] Triglyceride [Mass/Vol] 63 mg/dL Normal [facility] Comment on above: Result Comment: The drugs N-Acetylcysteine and Metamizole may falsely depress this assay. Normal range: <150 mg/dL Borderline High: 150-199 mg/dL High: 200-499 mg/dL Very High: >500 mg/dL Performed By: #### L 100.0100, L501.9520, L501.9910, L500.4100, L500.4050 #### [facility] [address] [place], [address] PSA,Total - Annual Screenon 01-18-2025 PSA,TOT SCREEN 0.24 ng/mL Normal 0.02-4.00 [facility] Comment on above: Result Comment: This test was performed using the [employer] tPSA method. Measured values of a patient??sample can vary depending on the testing procedure used. PSA values determined on patient samples by different testing procedures cannot be used interchangeably. If there is a change in PSA assays while monitoring therapy, sequential testing should be performed to confirm baseline values. Performed By: #### L 100.0100, L501.9520, L501.9910, L500.4100, L500.4050 #### [facility] [address] [place], [place], [address] Thyroid Stim Hormone (TSH)on 01-18-2025 TSH 3.110 uIU/mL Normal 0.300-4.200 [facility] Comment on above: Performed By: #### L 100.0100, L501.9520, L501.9910, L500.4100, L500.4050 #### [facility] [address] [place], [place], [address] CNOVon 12-31-2018 CNOV Office Visit (UCWSTR ) DOROTEO CAMPOS Chadwick ([id number]) 1965 M Date Time Provider Department 12/31/18 10:15 AM SANTY LUIS (LYN) [facility] During your visit today, we recorded the following information about you: Temperature Pulse Respiration Blood pressure 97.1 degrees 85/minute 16/minute 116/86 Weight 76.6 kg Santy Luis APRN.CNP 12/31/2018 12:10 PM Signed Subjective HPI HPI Doroteohunter Campos is a 53 year old male who presents today for CC of cough, congestion. This started 1 month. Has tried otc medication. Symptoms are worsened by nothing. Risk factors smoker. Intermittent testicular pain and penile drainage, not for past few days, concerned significant other is cheating. Recently went to ER for testicular pain, US pos for hydrocele per patient report. .Patient presents with: URI: intermittent x 1 month PAST MEDICAL HISTORY Diagnosis Date - Hep C w/o coma, chronic (HCC) PAST SURGICAL HISTORY Procedure Laterality Date - NONE ALLERGIES Patient has no known allergies. -This section reviewed with patient, no changes MEDICATIONS ibuprofen (MOTRIN) 600 mg tablet Take 1 tablet by mouth every 6 hours as needed for Pain. MULTIVITAMIN ORAL Take by mouth. No family history on file. Social History Tobacco Use - Smoking status: Former Smoker Types: Cigarettes - Smokeless tobacco: Former User - Tobacco comment: TRYING TO QUIT - NOT SMOKED FOR 3 WEEKS 03/12/17 Substance Use Topics - Alcohol use: No Comment: quit over 8-9 years - Drug use: No Review of Systems Constitutional: Negative for fever. HENT: Positive for congestion and sore throat. Negative for ear pain and nosebleeds. Respiratory: Positive for cough. Negative for shortness of breath and wheezing. Musculoskeletal: Negative for neck pain. Objective Blood pressure 116/86, pulse 85, temperature 36.2 ?C (97.1 ?F), temperature source Left Tympanic, resp. rate 16, weight 76.6 kg (168 lb 12.8 oz), SpO2 98 %. Physical Exam Constitutional: He is oriented to person, place, and time and well-developed, well-nourished, and in no distress. Non-toxic appearance. He does not have a sickly appearance. No distress. HENT: Head: Normocephalic and atraumatic. Right Ear: Hearing, tympanic membrane, external ear and ear canal normal. Left Ear: Hearing, tympanic membrane, external ear and ear canal normal. Nose: Nose normal. Mouth/Throat: Uvula is midline, oropharynx is clear and moist and mucous membranes are normal. Eyes: Pupils are equal, round, and reactive to light. Conjunctivae and lids are normal. Right eye exhibits no discharge. Left eye exhibits no discharge. No scleral icterus. Neck: Trachea normal and normal range of motion. Neck supple. Cardiovascular: Normal rate, regular rhythm and normal heart sounds. Pulmonary/Chest: Effort normal. He has no decreased breath sounds. He has no wheezes. He has rhonchi (scattered, clear with cough). He has no rales. Abdominal: Soft. Normal appearance and bowel sounds are normal. There is no hepatosplenomegaly, splenomegaly or hepatomegaly. There is no tenderness. Lymphadenopathy: He has no cervical adenopathy. Neurological: He is alert and oriented to person, place, and time. Skin: No rash noted. He is not diaphoretic. ASSESSMENT/PLAN: 1. Sinobronchitis - ICD9: 473.9, 490, ICD10: J32.9, J40 (primary diagnosis) - Will begin treatment with Doxycline - Supportive care with plenty of fluids, rest, and analgesia prn. - Follow up in 3-5 days if symptoms persist or worsen. -If you experience chest pain/shortness of breath go to ER - DOXYCYCLINE MONOHYDRATE 100 MG TABLET 2. Possible exposure to STD - ICD9: V01.6, ICD10: Z20.2 Will send for g/c, and trich, call results and treat as indicated Follow up if symptoms persist. 3. Testicular pain - ICD9: 608.9, ICD10: N50.819 As above. Has not occurred for few days - DOXYCYCLINE MONOHYDRATE 100 MG TABLET Prescription instructions reviewed with patient as applicable. Patient advised if symptoms do not improve or if symptoms worsen sooner, to contact the office for further evaluation by their primary care physician. Potential red flag symptoms discussed with the patient. Reviewed appropriate action plan to take if red flag symptoms occur. Patient agreeable to treatment plan. Santy Luis APRN.LYN Luis APRN.LYN 12/31/2018 10:56 AM Signed ASSESSMENT/PLAN: 1. Sinobronchitis - ICD9: 473.9, 490, ICD10: J32.9, J40 (primary diagnosis) - Will begin treatment with Doxycline - Supportive care with plenty of fluids, rest, and analgesia prn. - Follow up in 3-5 days if symptoms persist or worsen. -If you experience chest pain/shortness of breath go to ER - DOXYCYCLINE MONOHYDRATE 100 MG TABLET 2. Possible exposure to STD - ICD9: V01.6, ICD10: Z20.2 Will send for g/c, and trich, call results and treat as indicated Follow up if symptoms persist. 3. Testicular pain - ICD9: 608.9, ICD10: N50.819 As above. - DOXYCYCLINE MONOHYDRATE 100 MG TABLET Referring Provider: SELF [200] Allergies As of Date: 12/31/2018 (No Known Allergies) Date Reviewed: 12/31/2018 Reviewed by: Frieda Prajapati Ma - Fully Assessed Reason for Visit: URI [115] Cmt: intermittent x 1 month Primary Visit Diagnosis:Sinobronchi tis [J32.9, J40] Other Visit Diagnoses:Possible exposure to STD [Z20.2] Testicular pain [N50.819] Order(s):doxycycline monohydrate 100 mg tabletTake 1 tablet by mouth twice daily for 10 days.Disp: 20 tabletRfl: 0 T VAGINALIS AMPLIFICATION [SQTRVAMP] Order #: [id number] GC/CHLAMYDIA AMPLIF, URINE [SQUGCCT] Order #: [id number] Prescriptions as of 12/31/2018 Sig: DOXYCYCLINE MONOHYDRATE 100 M* Take 1 tablet by mouth twice * IBUPROFEN 600 MG TABLET Take 1 tablet by mouth every * Patient not taking: Reported on 12/31/2018 MULTIVITAMIN ORAL Take by mouth. Problem List As Of Date 12/31/2018 Noted Resolved Degeneration of lumbar intervertebral disc [M51*INVALID FOR* Midline low back pain with sciatica [M54.40] INVALID FOR* Sprain of lumbar region [S33.5XXA] INVALID FOR* Other instructions from your clinician: ASSESSMENT/PLAN: 1. Sinobronchitis - ICD9: 473.9, 490, ICD10: J32.9, J40 (primary diagnosis) - Will begin treatment with Doxycline - Supportive care with plenty of fluids, rest, and analgesia prn. - Follow up in 3-5 days if symptoms persist or worsen. -If you experience chest pain/shortness of breath go to ER - DOXYCYCLINE MONOHYDRATE 100 MG TABLET 2. Possible exposure to STD - ICD9: V01.6, ICD10: Z20.2 Will send for g/c, and trich, call results and treat as indicated Follow up if symptoms persist. 3. Testicular pain - ICD9: 608.9, ICD10: N50.819 As above. - DOXYCYCLINE MONOHYDRATE 100 MG TABLET Prescriptions ordered this encounter Disp Refills Start End DOXYCYCLINE MONOHYDRATE 100 MG TABLET 20 t* 0 12/31/2018 01/10/2019 Cmt: May transfer to [facility] if less expensive. Route: ORAL Sig: Take 1 tablet by mouth twice daily for 10 days. Encounter Status:Closed by SANTY LUIS CNP on 12/31/18 Normal [facility] GC/Chlamydia Amp, Uron 12-31 Chlamydia Amplif, Ur Negative Normal [facility] Comment on above: Performed By: #### U GCCT #### [facility] [address] [place], [place] [address] GC Amplification, Ur Negative Normal [facility] Comment on above: Performed By: #### U GCCT #### [facility] [address] [place], [place] [address] PROGRESSon 12-31-2018 PROGRESS HNO ID: [id number] Author: Santy Luis Service: ? Author Type: Nurse Practitioner Type: Progress Notes Filed: 12/31/2018 12:10 PM Note Text: Subjective HPI HPI Doroteo Campos is a 53 year old male who presents today for CC of cough, congestion. This started 1 month. Has tried otc medication. Symptoms are worsened by nothing. Risk factors smoker. Intermittent testicular pain and penile drainage, not for past few days, concerned significant other is cheating. Recently went to ER for testicular pain, US pos for hydrocele per patient report. .Patient presents with: URI: intermittent x 1 month PAST MEDICAL HISTORY Diagnosis Date - Hep C w/o coma, chronic (HCC) PAST SURGICAL HISTORY Procedure Laterality Date - NONE ALLERGIES Patient has no known allergies. -This section reviewed with patient, no changes MEDICATIONS ibuprofen (MOTRIN) 600 mg tablet Take 1 tablet by mouth every 6 hours as needed for Pain. MULTIVITAMIN ORAL Take by mouth. No family history on file. Social History Tobacco Use - Smoking status: Former Smoker Types: Cigarettes - Smokeless tobacco: Former User - Tobacco comment: TRYING TO QUIT - NOT SMOKED FOR 3 WEEKS 03/12/17 Substance Use Topics - Alcohol use: No Comment: quit over 8-9 years - Drug use: No Review of Systems Constitutional: Negative for fever. HENT: Positive for congestion and sore throat. Negative for ear pain and nosebleeds. Respiratory: Positive for cough. Negative for shortness of breath and wheezing. Musculoskeletal: Negative for neck pain. Objective Blood pressure 116/86, pulse 85, temperature 36.2 ?C (97.1 ?F), temperature source Left Tympanic, resp. rate 16, weight 76.6 kg (168 lb 12.8 oz), SpO2 98 %. Physical Exam Constitutional: He is oriented to person, place, and time and well-developed, well-nourished, and in no distress. Non-toxic appearance. He does not have a sickly appearance. No distress. HENT: Head: Normocephalic and atraumatic. Right Ear: Hearing, tympanic membrane, external ear and ear canal normal. Left Ear: Hearing, tympanic membrane, external ear and ear canal normal. Nose: Nose normal. Mouth/Throat: Uvula is midline, oropharynx is clear and moist and mucous membranes are normal. Eyes: Pupils are equal, round, and reactive to light. Conjunctivae and lids are normal. Right eye exhibits no discharge. Left eye exhibits no discharge. No scleral icterus. Neck: Trachea normal and normal range of motion. Neck supple. Cardiovascular: Normal rate, regular rhythm and normal heart sounds. Pulmonary/Chest: Effort normal. He has no decreased breath sounds. He has no wheezes. He has rhonchi (scattered, clear with cough). He has no rales. Abdominal: Soft. Normal appearance and bowel sounds are normal. There is no hepatosplenomegaly, splenomegaly or hepatomegaly. There is no tenderness. Lymphadenopathy: He has no cervical adenopathy. Neurological: He is alert and oriented to person, place, and time. Skin: No rash noted. He is not diaphoretic. ASSESSMENT/PLAN: 1. Sinobronchitis - ICD9: 473.9, 490, ICD10: J32.9, J40 (primary diagnosis) - Will begin treatment with Doxycline - Supportive care with plenty of fluids, rest, and analgesia prn. - Follow up in 3-5 days if symptoms persist or worsen. -If you experience chest pain/shortness of breath go to ER - DOXYCYCLINE MONOHYDRATE 100 MG TABLET 2. Possible exposure to STD - ICD9: V01.6, ICD10: Z20.2 Will send for g/c, and trich, call results and treat as indicated Follow up if symptoms persist. 3. Testicular pain - ICD9: 608.9, ICD10: N50.819 As above. Has not occurred for few days - DOXYCYCLINE MONOHYDRATE 100 MG TABLET Prescription instructions reviewed with patient as applicable. Patient advised if symptoms do not improve or if symptoms worsen sooner, to contact the office for further evaluation by their primary care physician. Potential red flag symptoms discussed with the patient. Reviewed appropriate action plan to take if red flag symptoms occur. Patient agreeable to treatment plan. Santy Luis APRN.CNP Normal [facility] Trich vaginalis Amplon 12-31 T vag Amplification Negative Normal [facility] Comment on above: Result Comment: This test was developed and its performance characteristics determined by [facility]'s [facility] [place] ([facility]). It has not been cleared or approved by the FDA. [facility] is regulated under CLIA as qualified to perform high complexity testing. This test is used for clinical purposes. It should not be regarded as investigational or for research. Performed By: #### T RVAMP #### [facility] [address] [place] [address] Trich vag Amp Source Urine Normal [facility] Comment on above: Performed By: #### T RVAMP #### [facility] [address] [place] [address] CNOVon 10-21-2018 CNOV Office Visit (UCWSTR ) DOROTEO CAMPOS ([id number]) 1965 M Date Time Provider Department 10/21/18 6:45 PM SANTY LUIS (LYN) WSTR During your visit today, we recorded the following information about you: Santy Luis APRN.CNP 10/21/2018 7:14 PM Signed Triaged at [facility]. Presenting with severe testicular pain with retraction. Referred to ER by pov. Referring Provider: SELF [[id number]] Allergies As of Date: 10/21/2018 (No Known Allergies) Date Reviewed: 03/12/2017 Reviewed by: Ethan (Lyn) LYN Pires - Fully Assessed Primary Visit Diagnosis:Testicular pain [N50.819] Prescriptions as of 10/21/2018 Sig: IBUPROFEN 600 MG TABLET Take 1 tablet by mouth every * MULTIVITAMIN ORAL Take by mouth. Problem List As Of Date 10/21/2018 Noted Resolved Degeneration of lumbar intervertebral disc [M51*INVALID FOR* Midline low back pain with sciatica [M54.40] INVALID FOR* Sprain of lumbar region [S33.5XXA] INVALID FOR* Encounter Status:Closed by SANTY LUIS CNP on 10/21/18 Normal [facility] HISTORY PHYSICALon 9 HISTORY PHYSICAL HNO ID: [id number] Author: Santy (Lyn) Service: ? Author Type: Nurse Practitioner Type: HANDP Filed: 10/21/2018 7:14 PM Note Text: Triaged at [facility]. Presenting with severe testicular pain with retraction. Referred to ER by pov. Normal [facility] LIVERon 02-17-2018 Albumin mass conc 3.4 g/dL Normal 3.2-5.0 [facility] Comment on above: Performed By: #### L [id number] ####[facility] [id number] [place], [place] [address]Bm# [phone] Albumin/Globulin mass ratio 0.6 {ratio} Low 0.8-2.0 [facility] Comment on above: Performed By: #### L 500.87712 ####[facility] [id number] [place], [place] [address]Vs# [phone] ALK PHOS 101 U/L Normal 45-117 [facility] Comment on above: Performed By: #### L 500.29011 ####[facility] [id number] [place], [place] [address]Zp# [phone] ALT enzyme act/vol 72 U/L High 13-61 [facility] Comment on above: Result Comment: RESU LTS MAY BE FALSELY DEPRESSED AFTER THE ADMINISTRATION OFSULFASALAZINE AND/OR SULFAPYRIDINE. Performed By: #### L 500.17383 ####[facility] [id number] [place], [place] [address]Ss# [phone] BILI DIRECT 0.28 MG/DL High 0.00-0.20 [facility] Comment on above: Performed By: #### L 500.26838 ####[facility] [id number] [place], [place] [address]Yx# [phone] BILI TOTAL 1.0 MG/DL Normal 0.2-1.0 [facility] Comment on above: Performed By: #### L 500.16220 ####[facility] [id number] [place], [place] [address]Pr# [phone] Globulin Calculated mass conc (S) 5.4 g/dL High 2.2-4.2 [facility] Comment on above: Performed By: #### L 500.89548 ####[facility] [id number] [place], [place] [address]Oc# [phone] Protein mass conc 8.8 g/dL High 6.0-8.5 [facility] Comment on above: Performed By: #### L 500.78480 ####[facility] [id number] [place], [place] [address]Nq# [phone] SGOT (AST) 50 U/L High 8-34 [facility] Comment on above: Result Comment: RESU LTS MAY BE FALSELY DEPRESSED AFTER THE ADMINISTRATION OFSULFASALAZINE AND/OR SULFAPYRIDINE. Performed By: #### L 500.72458 ####[facility] [id number] [place], [place] [address]Mv# [phone] Encounters Encounter Date Encounter Type Care Provider Facility Start: 01-19-2025 Encounter for other specified special examinations Silas [facility] Start: 01-18-2025 ambulatory [facility] Facility:[facility] Start: 08-26-2023 ambulatory MARIA TERESA Rojas ity:[facility] [place] Start: 09-12-2022 End: 09-12-2022 Emergency department patient visit [facility] Start: 02-17-2018 Patient encounter procedure Work Care Facility:[facility] Payers Date Payer Category Payer Self-pay 2025 Unknown [id number] 2020 Unknown [id number] 1965 Unknown [id number] 1965 Unknown [id number] 2.16. [id number] Unknown [id number] Unknown [id number] 2.16.8 [id number] Unknown [id number] 2.16.8 [id number] Summary Purpose Family History No Family History Records FoundNo Family History Records FoundNo Family History Records FoundNo Family History Records FoundNo Family History Records Found Advance Directives No Advanced Directives Records FoundNo Advanced Directives Records FoundNo Advanced Directives Records FoundNo Advanced Directives Records FoundNo Advanced Directives Records Found Additional Source Comments (unrecognized sect ion and content) No Status Records FoundNo Status Records FoundNo Status Records FoundNo Status Records FoundNo Status Records Found INFORMATION SOURCE (unrecogn ized section and content) DATE CREATED AUTHOR 02/19/2018 [facility] DATE CREATED AUTHOR AUTHOR'S ORGANIZ ATION 01/01/2019 [facility] DATE CREATED AUTHOR AUTHOR'S ORGANIZ ATION 09/24/2022 [facility] DATE CREATED AUTHOR AUTHOR'S ORGANIZ ATION 08/27/2023 [facility] DATE CREATED AUTHOR AUTHOR'S ORGANIZ ATION 01/20/2025 [facility] FOR RECORDS PERTAINING TO PATIENTS WHO ARE OR HAVE BEEN ENROLLED IN A CHEMICAL DEPENDENCY/SUBSTANCEABUSE PROGRAM, SOME INFORMATION MAY BE OMITTED. This clinical summary was aggregated from multiple sources. Caution should be exercised in using it in the provision of clinical care. This summary normalizes information from multiple sources, and as a consequence, information in this document may materially change the coding, format and clinical context of patient data. In addition, data may be omitted in some cases. CLINICAL DECISIONS SHOULD BE BASED ON THE PRIMARY CLINICAL RECORDS. [employer] [facility]. provides no warranty or guarantee of the accuracy or completeness of information in this document.
== END | disposition home or self-care (01) ==
LOC: CT 17:57
PROVIDERS: PCP Family Medicine Geriatric Medicine; Referring Provider Family Medicine Geriatric Medicine; Visit Provider Family Medicine Geriatric Medicine
DX: Z12.2 Encounter for screening for malignant neoplasm of respiratory organs (principal); Z87.891 Personal history of nicotine dependence
CPT/HCPCS: 71271

== ENCOUNTER 2025-02-10 09:33 | Outpatient (CLI) | payer MEDICAID, SELFPAY ==
--- NOTE | 2025-02-10 09:41 | RAD_ITS ---
PROCEDURE: BONE SURVEY COMP(AXIAL APPEND) 02/10/2025 REASON FOR EXAM: HYPERGAMMAGLOBINEMIA M, age 59 y/o . TECHNIQUE: Procedure Code: RADBSM Modality: DX Procedure: BONE SURVEY COMP(AXIAL APPEND) COMPARISON: None FINDINGS: Multiple views of the axial and appendicular skeleton. There are no suspicious lytic or blastic lesions identified. Mild degenerative changes are noted in the cervical and lumbar spine. Vascular calcifications are visible. RAD/Bone Survey Comp(Axial&Append) IMPRESSION: No suspicious lytic or blastic lesions are identified in the axial or appendicu lar skeleton. Reading Location: [facility]
== END 2025-02-10 23:59 | disposition home or self-care (01) ==
LOC: RAD 09:35
PROVIDERS: PCP Family Medicine Geriatric Medicine; Referring Provider Internal Medicine Medical Oncology; Visit Provider Internal Medicine Medical Oncology
DX: D89.2 Hypergammaglobulinemia, unspecified (principal); R59.1 Generalized enlarged lymph nodes; Z86.19 Personal history of other infectious and parasitic diseases
CPT/HCPCS: 36415; 77075; 82595; 82784; 83883; 84165; 86334; 86704; 86705; 86706; 86707; 86803; 87340; 87350

== ENCOUNTER → 2025-02-16 | Outpatient (CLI) | payer MEDICAID, SELFPAY ==
[2025-02-16 14:02] LABS: Hematocrit 41.2 % (40-54); Hemoglobin 13.4 g/dL (13.0-16.5); Immature Granulocytes Count 0.020 X10^3/uL (0.0-0.0); Mean Corp Hgb Conc 32.5 g/dL (32-36); Mean Corpuscular Volume 90.4 fL (80-94); Mean Platelet Vol. 11.2 fl (6.2-12.0); NRBC Flagged by Analyzer 0 % (0-5); Platelet Count 132 K/mm3 (150-450); RBC Distribution Width CV 14.3 % (11.6-14.6); RBC Distribution Width SD 47.8 fl (35.1-43.9); Red Blood Count 4.56 M/mm3 (4.6-6.2); White Blood Count 4.3 K/mm3 (4.4-11.0)
[2025-02-16 14:32] LABS: Cholesterol 147 mg/dL (<=200); Low Density Lipoprotein Calc. 87 mg/dL; Triglycerides 81 mg/dL; Very Low Density Lipoprotein 16 mg/dL (5-40); cholesterol:hdl ratio screen 3.32
[2025-02-16 14:35] LABS: AST(SGOT) 19 U/L (<=37); Alanine Aminotransfer ALT/SGPT 9 U/L (<=46); Albumin, Serum 3.6 g/dL (3.4-4.8); Alkaline Phosphatase 49 U/L (40-129); Anion Gap 8 (5-15); BUN 15 mg/dL (4-19); BUN/Creat Ratio 12.9 RATIO (10-20); Calcium,Total 9.2 mg/dL (7.6-11.0); Carbon Dioxide 27.9 mmol/L (21.0-32.0); Chloride 104 mmol/L (98-108); Globulin 5.8 g/dL (2.2-4.2); Glucose 89 mg/dL (70-99); Potassium 4.1 mmol/L (3.3-5.1)
[2025-02-16 21:42] LABS: Xtra Tube Kwok EXTRA TUBE
== END | disposition home or self-care (01) ==
LOC: POLAB3 13:40
PROVIDERS: PCP Family Medicine Geriatric Medicine; Visit Provider Family Medicine Geriatric Medicine
DX: I10 Essential (primary) hypertension (principal); E78.5 Hyperlipidemia, unspecified
CPT/HCPCS: 36415; 80053; 80061; 85025

== ENCOUNTER → 2025-02-22 | Outpatient (CLI) | payer MEDICAID, SELFPAY ==
--- NOTE | 2025-02-22 17:52 | CT_ITS ---
PROCEDURE: SOFT TISSUE NECK WITH CONTRAST 02/22/2025 REASON FOR EXAM: HYPERGAMMAGLOBINEMIA TECHNIQUE: Procedure Code: CTNEW Modality: CT Procedure: SOFT TISSUE NECK WITH CONTRAST CONTRAST: Isovue 370 VOLUME: 90 mL One or more dose reduction techniques were used (e.g., Automated exposure control, adjustment of the mA and/or kV according to patient size, use of iterative reconstruction technique). RADIATION DOSE SUMMARY: DLP: 1427.71 mGycm COMPARISON: None available FINDINGS: Aerodigestive tract: The floor of mouth, base of tongue, nasopharynx, oropharynx, hypopharynx, and larynx appear overall symmetric without evidence of nodular or masslike enhancement. The visualized trachea is clear. The nasal cavity is unobstructed. Salivary glands: (Major): The submandibular glands and parotid glands appear within normal limits. Thyroid gland: Unremarkable. Lymph nodes: There is no evidence of pathologic cervical lymphadenopathy. Vasculature: The common carotid, cervical internal carotid, and cervical vertebral arteries opacify with intravenously administered contrast. Paranasal sinuses: The paranasal sinuses are predominantly clear. Orbits: Unremarkable. Intracranial/cranium: The partially visualized intracranial contents appear overall within normal limits for the patient's stated age, although assessment is limited due to technique (e.g. the [id number]). Cervical spine: Os odontoideum. The atlas appears hypertrophied. Lung apices: The visualized lung apices are predominantly clear. CT/Soft Tissue Neck WITH Contrast IMPRESSION: No dominant neck mass or pathologic cervical lymphadenopathy. Reading Location: [facility]
--- NOTE | 2025-02-22 17:52 | CT_ITS ---
PROCEDURE: CT CHEST, ABD, PEL W/CONTRAST 02/22/2025 REASON FOR EXAM: HYPERGAMMAGLOBINEMIA-IV ONLY TECHNIQUE: Chest, abdomen and pelvis CT with intravenous contrast. Coronal and Sagittal reconstruction series were generated. One or more dose reduction techniques were used (e.g., Automated exposure control, adjustment of the mA and/or kV according to patient size, use of iterative reconstruction technique. PATIENT PREPARATION: Per protocol ORAL CONTRAST TYPE: None. AMOUNT: None. CONTRAST: Isovue 370 VOLUME: 90mL RADIATION DOSE SUMMARY: CTDlvol: 26.6+ 14.03+ 13.20+ 8.88 mGy DLP: 1427.71 mGycm COMPARISON: Lung cancer screening CT 02/08/2025 and prior. No previous imaging of the abdomen/pelvis. FINDINGS: Exam limited by beam hardening artifact related to the arms which were not removed from the scan field. Heart/pericardium: Trace aortic annular calcification.. Aorta: Mild atherosclerosis. Pulmonary arteries: Unremarkable. Lymph nodes: Unremarkable. Lungs/pleura: Mild likely atelectasis/scarring. Airways: Unremarkable. Chest wall: Unremarkable. Other: Duplicated SVC, normal variant. Liver: Minimal likely focal steatosis along the anterior falciform, normal variant.. Spleen: Unremarkable. Gallbladder: Unremarkable. Pancreas: Unremarkable. Adrenals: Unremarkable. Kidneys: Unremarkable. Bowel: Unremarkable. Normal caliber appendix. Lymph nodes: Unremarkable. Vasculature: Mild atherosclerosis. Circumaortic LEFT renal vein, normal variant.. Peritoneum: Unremarkable. Bladder: Underdistended and suboptimally evaluated, grossly unremarkable. Reproductive Organs: Minimally imaged suspected at least trace RIGHT hydrocele.. Body Wall: Unremarkable. Musculoskeletal: Mild degenerative findings. Trace thoracic levoscoliosis. Old LEFT rib fractures. CT/CT Chest, Abd, Pel w/Contrast IMPRESSION: 1. No acute or suspicious findings. 2. Additional description as above. Reading Location: [id number]
== END | disposition home or self-care (01) ==
LOC: CT 17:50
PROVIDERS: PCP Family Medicine Geriatric Medicine; Referring Provider Internal Medicine Medical Oncology; Visit Provider Internal Medicine Medical Oncology
DX: D89.2 Hypergammaglobulinemia, unspecified (principal); R59.1 Generalized enlarged lymph nodes; Z86.19 Personal history of other infectious and parasitic diseases
CPT/HCPCS: 70491; 71260; 74177; 82595; Q9967